=== PATIENT | female | born 1985 | race Caucasian/White ===

== ENCOUNTER 2018-10-31 19:37 | Inpatient (IN) ==
[2018-10-31] MEDS ORDERED: MOM Conc 10 ML UD.LIQ PO PRN (20:18)
[2018-10-31] MEDS ORDERED: *HR* LORazepam 1 MG TABLET PO PRN (20:18)
[2018-10-31] MEDS ORDERED: Haloperidol Lactate 5 MG/ML VIAL IM PRN (20:18)
[2018-10-31] MEDS ORDERED: Mag Hydrox/Al Hydrox/Simeth 30 ML UDC PO PRN (20:18)
[2018-10-31] MEDS ORDERED: traZODone 50 MG TABLET PO PRN (20:18)
[2018-10-31] MEDS ORDERED: *HR* LORazepam 2 MG/ML VIAL IM PRN (20:18)
[2018-10-31] MEDS ORDERED: hydrOXYzine pamoate 25 MG CAPSULE PO PRN (20:18)
[2018-10-31] MEDS ORDERED: Acetaminophen 325 MG TABLET PO PRN (20:18)
[2018-10-31] MEDS ORDERED: Ibuprofen 600 MG TABLET PO PRN (21:52)
--- NOTE | 2018-11-01 09:59 | Psychiatry History & Physical ---
Date of Encounter: 11/01/18 Time of Encounter: 09:00 History of Present Illness Patient Stated Chief Complaint: "I was sleeping and I said 'yes,' and then I had a baby" Medicare Admission Attestation: For traditional Medicare patients the provided hospital inpatient services are reasonable and necessary and in the case of services not specified as inpatient-only under 42 CFR 419.22 (n), that they are appropriately provided as inpatient services in accordance 42 CFR 412.3. For Critical Access Hospital the patient may reasonably be expected to be discharged or transferred to a hospital within 96 hours after admission to the Critical Access Hospital. Admitted From: Direct Admit Plans for Post Hospital Care: Home History of Present Illness: Ms. Tran is a 33 year old female who was a direct admit from [facility] after giving at home on 10/29/18. Per review of records, patient had her baby boy in a toilet at home. She was then brought to the ED covered in blood where she appeared to be somewhat indifferent to the baby. She answered most questions at that time with "I don't know." Most information was obtained from November, her boyfriend's mother. Apparently, she found out about her in August 2018, but did not believe it, so she had no care and refused to take vitamins. Records indicate that she has a history of schizophrenia. On first interaction with patient, patient left the room after 2 minutes after grabbing her breasts and saying "I need to go." Later, patient preferred to speak with this provider and the medical student in the day room instead of her room. Information is limited as to patient's current condition. When asked what brought her to the unit, she replied "I was asleep on psychiatrically-induced medications, and said 'yes,' and had a baby. It is kind of unbelievable." She reports also having two other children who were "closer to expected." When asked what medications she was taking, she states "too much medications by too much doctors." Patient admitted to seeing a madhaviaun, but then stated that she was kidding and laughed. Patient is able to state her first name, but reports that her last name is "No. It should be no." She knows that she is at [facility], and is aware that she had a baby boy on 10/29/18. Denies suicidal and homicidal ideation. On third interaction with the patient, she was lying in bed. She stated that she has "a lot of pressure in my breasts." She repeatedly rolled her eyes into the back of her head with rapid blinking. However, she would speak during these episodes. She was informed of the risks, benefits, and side effects of aripiprazole, and asked to see written information about the medication. She then asked if she "still had the right to refuse medication." When asked if she plans to breastfeed, she responded "You mean the baby I had on Wednesday? I don't know. I doubt it." Patient gave verbal consent to speak with Portillo and his mother, November, with whom she lives. She refused to sign the informed medication consent and master treatment plan. Past Med Surg Social Fam HX - Past Medical History Source: old records reviewed, obtained from family Medical history: other (vaginal child at home on 10/29/18) - Past Psychiatric History Psychiatric history: Reports: schizophrenia (per review of direct admit records) Past psychiatric history details: Records indicate that patient was hospitalized on an inpatient psychiatric unit two years ago. Also indicates that patient stopped taking her psychiatric medications at that time. Patient's states that her past psychiatric history as "too much." She states that she has "many diagnoses from different doctors, too much different doctors." Family psychiatric history: Unknown Family History of Suicide: Unknown - Social History Smoking Status: Unknown if ever smoked Current living situation: Home Activity Level: Independent ambulation Additional social history: Patient currently lives with her boyfriend (Portillo) and his mother (November). She has a that was delivered at home on 10/29/18 and two other children. Not able to obtain any other social history, including substance use. Medications & Allergies Allergy/AdvReac Type Severity Reaction Status Date / Time Cyclobenzaprine AdvReac Anaphylaxis Verified 10/31/18 20:16 [From Flexeril] Review of Systems ROS limited: due to patient condition Psychiatric: Denies: suicidal ideation, homicidal ideation Exam - HEENT Head exam IM: Present: normal inspection Eye exam IM: Present: EOMI, normal appearance - Respiratory Respiratory exam IM: Absent: accessory muscle use, respiratory distress - GI/Abdominal GI/Abdominal exam IM: Present: no peritoneal signs - Skin Skin exam IM: Present: dry - Additional Information Additional Information: Patient is experiencing bloody discharge/lochia from her childbirth 3 days ago. This was noted on her pants, so a new sanitary napkin and pair of pants was given to the patient. - Constitutional Vitals: Temp Pulse Resp BP Pulse Ox 97.1 F L 102 16 117/76 99 11/01/18 09:00 11/01/18 09:00 11/01/18 09:00 11/01/18 09:00 11/01/18 09:00 General appearance: age & developmentally appropriate, unkempt, average Additional observations: Occasionally rolls eyes in the back of her head and blinks repetitively. She does speak when doing this and can be redirected. Has food on her left cheek. Poor dentition. - Musculoskeletal Gait: slow (appears to walk with an antalgic gait) Station: stiff - Psychiatric Patient Orientation: Yes Person, Yes Time, Yes Place Level of alertness: Alert, Follows commands Behavior: calm, restless (patient is pacing the halls), suspicious Psychomotor activity: Normal Eye Contact: Minimal Contact (also with occasional rapid blinking) Mood Description: Other Patient description of mood: "I don't know" Affect description: blunted Speech Volume: Soft/Quiet Speech pattern: slowed, monotone, other (Patient frequently answers "I don't know." ) Language & Vocabulary: limited Thought Process: Disorganized, [place], Slowed Thinking Thought Content: No Suicidal ideation, No Homicidal ideation Perceptual Disturbances: Yes Reacting to internal stimuli, Yes Visual hallucinations ([facility], but then said "just kidding.") Attention Span Ability: Unable to Sustain Attention Memory Description: Recent Intact Patient Reliability: Not Reliable Historian Fund of knowledge: Yes average Intelligence Estimate: Average Judgment: Limited Insight: Minimal Assessment and Plan (1) Schizophrenia Current visit: Yes Status: Chronic Plan: Admit inpatient for safety and stabilization, Close observation, Suicide Precautions per unit protocol, Encourage participation in unit milieu, Group Therapy, Monitor sleep, Monitor appetite Additional Plan: 1. Continue inpatient hospitalization given patient's current mental state. 2. Will start aripiprazole 5mg. Patient was given a written handout on this medication. She did ask if she "still had a right to refuse medication." Want to avoid using risperidone, given that patient is already expressing breast milk and this will increase . Patient "doubts" that she will breastfeed her baby. 3. Would like to get collateral information regarding past medications and history of present illness from November (patient's boyfriend's mother, with whom she lives), but do not have her phone number and patient does not know it. Plan to do this as soon as phone number is obtained. Patient gave verbal consent to speak with her. 4. Encourage group attendance while on the unit. 5. Anticipate discharge in about 7 days or when psychiatrically stable. 6. Will continue to monitor while on the unit. Risks, benefits, side effects, alternatives discussed w/pt: Yes Plans for Post Hospital Care: Home Estimated Length of Stay (Days): 7 Qualifiers: Schizophrenia type: unspecified Qualified Code(s): F20.9 - Schizophrenia, unspecified - Attending Attestation I examined this patient and my medical decision-making was reviewed with the Resident Physician. I agree with the documented findings, disposition and treatment plan as described except to the extent set forth below.
[2018-11-01] MEDS: ARIPiprazole 5 MG TABLET PO SCH (13:48)
--- NOTE | 2018-11-02 09:47 | Psychiatry Progress Note ---
Date of Encounter: 11/02/18 Time of Encounter: 08:40 Subjective Interval history: Ms. Tran is a 33 year old female who was admitted for psychosis following the of her son on 10/29/18. She was sitting on her bed when this provider and the medical student entered her room. She states that her mood is "I don't know." She states that she slept "differently," because her breasts felt "irritable." In regards to her appetite, she reports, "I ate breakfast," but states that she skipped dinner last night. She does report being in pain, but states "it doesn't matter" when asked where the pain is. She was reminded that she can have Tylenol, but does not want it. Denies suicidal and homicidal ideation. When asked about visual/auditory hallucinations, she replied "Should I? People keep asking me that here." She does appear to be reacting to internal stimuli. She also did not want the door to her bedroom to be closed, because she feels as if it could lock automatically. Patient refused her Abilify last night. She is afraid that it will make her sleep too much. She was told by my attending, Dr. Salazar, that she will be probated for court-ordered medications. She asked this provider about that, but was most concerned about where the court was. She also reports recognizing Dr. Salazar from the [facility], but then stated that she doesn't go to the [facility]. Review of Systems Integumentary: Reports: nipple discharge (secondary to giving 4 days ago; also reports breast pain) Psychiatric: Reports: abnormal sleep pattern (due to "irritable" breasts). Denies: suicidal ideation, homicidal ideation Results - Vital Signs Vital Signs: Temp Pulse Resp BP Pulse Ox 98.1 F 90 20 123/88 100 11/01/18 19:57 11/01/18 19:57 11/01/18 19:57 11/01/18 19:57 11/01/18 19:57 Assessment and Plan (1) Schizophrenia Current visit: Yes Status: Chronic Plan: Continue hospitalization, Close observation, Suicide Precautions per unit protocol, Encourage participation in unit milieu, Group Therapy, Monitor sleep, Monitor appetite Additional Plan: 1. Continue inpatient hospitalization given patient's current mental state. 2. Will continue Abilify 5mg, however patient is refusing. Patient will be probated for court-ordered medications. Paperwork has already been filled out. 3. Would still like to obtain collateral information from Tarsha, her boyfriend's mother. However, no contact information is available at this time. 4. Encourage group attendance while on the unit. 5. Anticipate discharge when psychiatrically stable. 6. Will continue to monitor while on the unit. Risks, benefits, side effects, alternatives discussed w/pt: Yes Patient agreeable to treatment: No (refusing medication) Qualifiers: Schizophrenia type: unspecified Qualified Code(s): F20.9 - Schizophrenia, unspecified Consult Discharge Plan - Plan Referrals: NONE,PCP [Primary Care Provider] - - Attending Attestation I examined this patient and my medical decision-making was reviewed with the Resident Physician. I agree with the documented findings, disposition and treatment plan as described except to the extent set forth below. Patient still very bizarre, refusing meds and not caring for herself. When I inquired about the baby stared at me and asked if I had ever given to something that was already alive. Significant thought blocking. Psychiatry Exam - Constitutional Vitals: Temp Pulse Resp BP Pulse Ox 98.1 F 90 20 123/88 100 11/01/18 19:57 11/01/18 19:57 11/01/18 19:57 11/01/18 19:57 11/01/18 19:57 General appearance: age & developmentally appropriate, unkempt, average - Musculoskeletal Gait: other (not assessed) Station: [facility] - Psychiatric Patient Orientation: Yes Person, Yes Time, Yes Place Level of alertness: Alert Behavior: calm, suspicious Psychomotor activity: Normal Eye Contact: Maintains Eye Contact Patient description of mood: "I don't know" Affect description: blunted Speech Volume: Soft/Quiet Speech pattern: monotone Language & Vocabulary: consistent with education Thought Process: [place] Thought Content: No Suicidal ideation, No Homicidal ideation Perceptual Disturbances: Yes Reacting to internal stimuli (frequently looks around the room; was sitting in bed staring at the ramsay when this provider entered her room; denies AH/VH but does appear to be reacting to internal stimuli) Attention Span Ability: Capable of Focused Attention Memory Description: Recent Intact Patient Reliability: Not Reliable Historian Fund of knowledge: Yes average Intelligence Estimate: Average Judgment: Limited Insight: Minimal
[2018-11-02] MEDS: ARIPiprazole 5 MG TABLET PO SCH (11:29)
--- NOTE | 2018-11-03 09:20 | Psychiatry Progress Note ---
Date of Encounter: 11/03/18 Time of Encounter: 09:18 Subjective Interval history: CC: You have court here but millions of [place] are losing their jobs" She remains very bizarre with significant thought blocking and staring. She continues to refuse medications. When asked why she said "they make me sleep too much" we discussed other options for antipsychotics and that Abilify is actually a good choice with one of the better side effects profiles in terms of sedation. She continues to feel she does not need them. When asked where she wants to go after she leaves here she says she does not know. She is not sure if November will take her back and she said they Called her. We talked about the process of having to give them a number so that they can call in. She became very confused by this information. She says "I do not know" when asked if she has hallucinations but she clearly seems to be responding to internal stimuli. She is not bailing him adequately despite being . She is skipping most meals and has only eaten toast Review of Systems Psychiatric: Reports: abnormal sleep pattern (due to "irritable" breasts), auditory hallucinations, visual hallucinations, difficulty concentrating, other (Psychosis). Denies: suicidal ideation, homicidal ideation Results - Vital Signs Vital Signs: Temp Pulse Resp BP Pulse Ox 98 F 95 16 114/77 96 11/03/18 09:00 11/03/18 09:00 11/03/18 09:00 11/03/18 09:00 11/03/18 09:00 Assessment and Plan (1) Schizophrenia Current visit: Yes Status: Chronic Plan: Continue hospitalization, Close observation, Suicide Precautions per unit protocol, Encourage participation in unit milieu, Group Therapy, Monitor appetite Additional Plan: Continue to encourage Abilify as well as group attendance. We have discussed other treatment options and different antipsychotics. She continues to refuse so the probate Court paperwork was filled out yesterday for court ordered medication. Risks, benefits, side effects, alternatives discussed w/pt: Yes Patient agreeable to treatment: No (refusing medication) Qualifiers: Schizophrenia type: unspecified Qualified Code(s): F20.9 - Schizophrenia, unspecified Consult Discharge Plan - Plan Referrals: NONE,PCP [Primary Care Provider] - Psychiatry Exam - Constitutional Vitals: Temp Pulse Resp BP Pulse Ox 98 F 95 16 114/77 96 11/03/18 09:00 11/03/18 09:00 11/03/18 09:00 11/03/18 09:00 11/03/18 09:00 General appearance: malodorous, thin - Musculoskeletal Gait: slow Station: bizarre mannerisms, posturing Strength & Tone: normal for patient - Psychiatric Patient Orientation: Yes Person Level of alertness: Alert Behavior: guarded, suspicious, distractible, withdrawn Psychomotor activity: Slowed Eye Contact: Avoids Eye Contact Mood Description: Other (bizzare) Patient description of mood: "I don't know" Affect description: flat Speech Volume: Soft/Quiet Speech pattern: slowed, inappropriate to situation, impoverished, monotone Language & Vocabulary: limited Thought Process: Thought Blocking Thought Content: No Suicidal ideation, No Homicidal ideation, Yes Paranoid delusion Perceptual Disturbances: Yes Reacting to internal stimuli, Yes Auditory hallucinations, Yes Visual hallucinations Attention Span Ability: Unable to Focus, Unable to Sustain Attention Memory Description: Immediate Impaired, Recent Impaired, Remote Impaired Patient Reliability: Not Reliable Historian Fund of knowledge: No abstraction ability Intelligence Estimate: Average Judgment: Poor Insight: None
[2018-11-03] MEDS: ARIPiprazole 5 MG TABLET PO SCH (10:05)
[2018-11-04] MEDS: ARIPiprazole 5 MG TABLET PO SCH ×2 (10:16→11:02)
--- NOTE | 2018-11-04 11:00 | OB/GYN Consult Note ---
Date of Encounter: 11/04/18 Time of Encounter: 10:59 Assessment and Plan (1) breast engorgement Current Visit: Yes Status: Acute Bilateral breast examined: No s/s of mastitis] Binder applied for compression (2) care following vaginal delivery Current Visit: Yes Status: Acute Continue routine perineal care History of Present Illness Consult date: 11/04/18 Reason for consult: other (1 week postparum) History of present illness: Patient is a 33 y/o female that was admitted to as a "direct admit from [facility] after giving at home on 10/29/18. Patient had her baby boy in a toilet at home. Apparently, she found out about her in August 2018, but did not believe it, so she had no care and refused to take vitamins. Patient is currently refusing mediations. Dr. Henry placed an OB consult due to patient not doing well with hygiene. When I arrived to patient's room patient had just completed her shower. Patient's vital signs are stable. Patient is afebrile, denies any tenderness to abdomen during exam. Patient denies any stitches following delivery. Patient was seen and assessed by OBGYN service no further need for regulatory compliance specialist care. OB may be consulted in future if needed. Past Med Surg Social Fam HX - Past Medical History Medical history: other (vaginal child at home on 10/29/18) Additional medical history: borderline DM, ovarian cyst Psychiatric history: schizophrenia (per review of direct admit records) - Past Surgical History Additional surgical history: no surgeries - Social History Smoking Status: Unknown if ever smoked Smokeless Tobacco Status: No Alcohol use: none Drug use: none Medications and Allergies Unable To Obtain [Unable to Obtain] 11/01/18 [History] Allergy/AdvReac Type Severity Reaction Status Date / Time Cyclobenzaprine AdvReac Anaphylaxis Verified 10/31/18 20:16 [From Flexeril] Review of Systems Constitutional: no chills, no fever(s), no headache(s), no weakness Breasts: pain (reports tenderness) Cardiovascular: no lightheadedness Gastrointestinal: no abdominal pain, no cramping, no nausea, no vomiting Genitourinary Female: no abnormal vaginal bleeding, no difficulty urinating, no dysuria, no genital pruritis, no pelvic pain, no urinary frequency, no urinary hesitancy, no urinary incontinence, no vaginal odor Neurological: no dizziness, no headache(s) Exam - Vital Signs Vital signs: Initial Vital Signs Temp Pulse Resp BP Pulse Ox 98.4 F 90 18 137/83 97 10/31/18 19:40 10/31/18 19:40 10/31/18 19:40 10/31/18 19:40 10/31/18 19:40 - Constitutional Constitutional: well developed - HEENT HEENT: Normocephaly, Mucus Membranes Moist - Cardiovascular Cardiovascular exam: RRR, +S1, +S2 - Breasts Breast: bilateral: normal (no streaking or redness noted) - Abdomen Abdomen: Present: bowel sounds normal, non tender - Extremities Extremities exam: full ROM, normal inspection - Comments Comments: light lochia noted. no blood clots noted Results All other labs normal. Consult Discharge Plan - Plan Referrals: NONE,PCP [Primary Care Provider] -
--- NOTE | 2018-11-04 15:43 | Psychiatry Progress Note ---
Date of Encounter: 11/04/18 Time of Encounter: 13:00 Subjective Interval history: This is a 33 y/o postpartal female with a diagnosis of schizophrenia who was admitted after she delivered a baby in the toilet. Patient unaware of her . Patient admitted with psychosis. Patient has refused medication since admission. Today patient was seen by OB-LABORATORY DEVELOPMENT TECHNICIAN on consult due to patient's inability to take care of her hygiene and engorgement of her breasts. Patient on interview is generally cooperative,but displays thought blocking and states, "you wouldn't believe." Patient admits to A?V hallucinations, but declines to comment on the content of these hallucinations. Patient states she is being watched like everyone else. Patient is reluctant to engage in conversation and signals that she is finished talking by getting up and heading toward the door. Review of Systems Constitutional: Denies: fever, chills, weakness, weight change Eyes: Denies: eye pain, vision change Ears, Nose, Throat: Denies: ear pain, throat pain, dental pain, hearing loss, congestion Cardiovascular: Denies: chest pain, palpitations, dyspnea on exertion Respiratory: Denies: cough, dyspnea, wheezes Gastrointestinal: Denies: abdominal pain, nausea, vomiting, diarrhea, constipation Genitourinary male: Reports: urgency Genitourinary female: Reports: discharge, other (Lochia) Musculoskeletal: Denies: joint swelling, joint pain Neurological: Denies: headache, weakness, numbness, memory loss Psychiatric: Reports: abnormal sleep pattern (due to "irritable" breasts), auditory hallucinations, visual hallucinations, difficulty concentrating, other (Psychosis). Denies: suicidal ideation, homicidal ideation Endocrine: Denies: fatigue, heat or cold intolerance, polydipsia, polyuria Results - Vital Signs Vital Signs: Temp Pulse Resp BP Pulse Ox 98 F 85 16 107/74 97 11/04/18 09:00 11/04/18 09:00 11/04/18 09:00 11/04/18 09:00 11/04/18 09:00 Assessment and Plan (1) Schizophrenia Current visit: Yes Status: Chronic Plan: Continue hospitalization, Close observation, Suicide Precautions per unit protocol, Encourage participation in unit milieu, Group Therapy, Monitor sleep, Monitor appetite Additional Plan: Increase Abilify to 10mg/d. This med will not likely cause elevation of prolactin. Encourage group attendance. Patient did take her morning dose of abilify. Court papers have been filed for lack of compliance. Risks, benefits, side effects, alternatives discussed w/pt: Yes Patient agreeable to treatment: No (refusing medication) Qualifiers: Schizophrenia type: unspecified Qualified Code(s): F20.9 - Schizophrenia, unspecified (2) breast engorgement Current visit: Yes Status: Acute Plan: Continue hospitalization, Close observation, Suicide Precautions per unit protocol, Encourage participation in unit milieu, Group Therapy, Monitor sleep, Monitor appetite Additional Plan: OB-LABORATORY DEVELOPMENT TECHNICIAN has sxamined patient and placed a breast binder to diminsh patient's breast milk production. Risks, benefits, side effects, alternatives discussed w/pt: Yes Patient agre eable to treatment: Yes Consult Discharge Plan - Plan Referrals: NONE,PCP [Primary Care Provider] - Psychiatry Exam - Constitutional Vitals: Temp Pulse Resp BP Pulse Ox 98 F 85 16 107/74 97 11/04/18 09:00 11/04/18 09:00 11/04/18 09:00 11/04/18 09:00 11/04/18 09:00 General appearance: disheveled - Musculoskeletal Gait: normal Station: relaxed Strength & Tone: normal for patient - Psychiatric Patient Orientation: Yes Person, Yes Time, Yes Place Level of alertness: Alert Behavior: anxious, guarded, suspicious, distractible Psychomotor activity: Normal Eye Contact: Minimal Contact Mood Description: Depressed Affect description: blunted, inappropriate to situation Speech Volume: Normal Speech pattern: limited, impoverished, mumbled Language & Vocabulary: limited Thought Process: Loose Associations, Thought Blocking, [place] Thought Content: Yes Ideas of reference, Yes Preoccupation, Yes Poverty of Content Perceptual Disturbances: Yes Auditory hallucinations, Yes Visual hallucinations Attention Span Ability: Capable of Sustained Attention Memory Description: Grossly Intact Patient Reliability: Not Reliable Historian Fund of knowledge: Yes below average Intelligence Estimate: Average Judgment: Poor Insight: None
[2018-11-05] MEDS: ARIPiprazole 5 MG TABLET PO SCH (09:02)
--- NOTE | 2018-11-05 16:28 | Psychiatry Progress Note ---
Date of Encounter: 11/05/18 Time of Encounter: 15:30 Subjective Interval history: Patient admitted postpartal with psychosis. Patient in bed on morning rounds and not wanting to talk, so patient seen this afternoon and cooperative to interview. Patient questions the dose of Ablilify and states she has the right to refuse medication. Patient very guarded and suspicious. Patient denies A/V hallucinations, but wants to know which voices are being referred to. Patient declines to discuss mood or anxiety. Patient states she did shower and change her pad today. States that she sleep well, but denies that she feels refreshed. Appetite WNL. Patient makes some stereotypic movements during interview. Review of Systems Constitutional: Denies: fever, chills, weakness, weight change Eyes: Denies: eye pain, vision change Ears, Nose, Throat: Denies: ear pain, throat pain, dental pain, hearing loss, congestion Respiratory: Denies: cough, dyspnea, wheezes Gastrointestinal: Denies: abdominal pain, nausea, vomiting, diarrhea, constipation Genitourinary male: Reports: discharge, other (lochia) Genitourinary female: Reports: discharge. Denies: urgency, dysuria, frequency Musculoskeletal: Denies: joint swelling, joint pain Neurological: Denies: headache, weakness, numbness, memory loss Psychiatric: Reports: abnormal sleep pattern (due to "irritable" breasts), auditory hallucinations, visual hallucinations, difficulty concentrating, other (Psychosis). Denies: suicidal ideation, homicidal ideation Endocrine: Denies: fatigue, heat or cold intolerance, polydipsia, polyuria Hematologic/Lymphatic: Denies: easy bleeding, easy bruising, lymphadenopathy Allergic/Immunologic: Denies: facial swelling, urticaria, itchy eyes, other Results - Vital Signs Vital Signs: Temp Pulse Resp BP Pulse Ox 97.4 F L 111 18 113/79 97 11/05/18 08:19 11/05/18 08:19 11/05/18 08:19 11/05/18 08:19 11/05/18 08:19 Assessment and Plan (1) Schizophrenia Current visit: Yes Status: Chronic Plan: Continue hospitalization, Close observation, Suicide Precautions per unit protocol, Encourage participation in unit milieu, Group Therapy, Monitor sleep, Monitor appetite Additional Plan: Continue Abilify to 10mg/d, although patient may refuse med. This med will not likely cause elevation of prolactin. Encourage group attendance. Court papers have been filed for lack of compliance. Risks, benefits, side effects, alternatives discussed w/pt: Yes Patient agreeable to treatment: No (refusing medication) Qualifiers: Schizophrenia type: unspecified Qualified Code(s): F20.9 - Schizophrenia, unspecified (2) breast engorgement Current visit: Yes Status: Acute Plan: Continue hospitalization, Close observation, Suicide Precautions per unit protocol, Encourage participation in unit milieu, Group Therapy, Monitor sleep, Monitor appetite Additional Plan: OB-LOSS CONTROL MANAGER has sxamined patient and placed a breast binder to diminish patient's breast milk production. Risks, benefits, side effects, alternatives discussed w/pt: Yes Patient agreeable to treatment: Yes Consult Discharge Plan - Plan Referrals: NONE,PCP [Primary Care Provider] - Psychiatry Exam - Constitutional Vitals: Temp Pulse Resp BP Pulse Ox 97.4 F L 111 18 113/79 97 11/05/18 08:19 11/05/18 08:19 11/05/18 08:19 11/05/18 08:19 11/05/18 08:19 General appearance: age & developmentally appropriate, well-groomed, well- nourished - Musculoskeletal Gait: normal Station: relaxed Strength & Tone: normal for patient - Psychiatric Patient Orientation: Yes Person, Yes Time, Yes Place Level of alertness: Alert Behavior: calm, guarded, suspicious Psychomotor activity: Normal Eye Contact: Fleeting Contact Mood Description: Euthymic/stable Affect description: constricted, incongruent with mood Speech Volume: Soft/Quiet Speech pattern: limited, monotone Language & Vocabulary: consistent with education Thought Process: Tangential, Thought Blocking, Evasive Thought Content: Yes Ideas of reference, Yes Paranoid delusion Perceptual Disturbances: No Auditory hallucinations, No Visual hallucinations Attention Span Ability: Capable of Focused Attention Memory Description: Grossly Intact Patient Reliability: Questionable Historian Fund of knowledge: Yes abstraction ability, Yes aware of current events Intelligence Estimate: Average Judgment: Limited Insight: Minimal
[2018-11-05] MEDS ORDERED: ARIPiprazole 10 MG TABLET PO STA (20:14)
--- NOTE | 2018-11-06 09:02 | Psychiatry Progress Note ---
Date of Encounter: 11/06/18 Time of Encounter: 09:00 Subjective Interval history: CC: "Nevermind, I don't think you would get it." Patient remains confused and disorganized. She did remember my name and remembered me from 3 days ago but was paranoid about where I was saying she didn't believe I was at a medical conference. She looks around the room and appears to be responding to internal stimuli though denies AH or VH. She took one dose of abilify last night. But otherwise is refusing all meds. She has poor hygiene and is not caring for ADLs and not eating much. Review of Systems Psychiatric: Reports: abnormal sleep pattern (due to "irritable" breasts), auditory hallucinations, visual hallucinations, confusion, difficulty concentrating, other (Psychosis). Denies: suicidal ideation, homicidal ideation Results - Vital Signs Vital Signs: Temp Pulse Resp BP Pulse Ox 97.2 F L 106 18 111/79 96 11/05/18 21:00 11/05/18 21:00 11/05/18 21:00 11/05/18 21:00 11/05/18 21:00 Assessment and Plan (1) Schizophrenia Current visit: Yes Status: Chronic Plan: Continue hospitalization, Close observation, Suicide Precautions per unit protocol, Encourage participation in unit milieu, Group Therapy, Monitor sleep, Monitor appetite Additional Plan: Has still only taken one dose of meds so will continue to move forward with court ordered med hearing, especially since really needs VANEGAS. Encourage groups, encourage hygiene. Risks, benefits, side effects, alternatives discussed w/pt: Yes Patient agreeable to treatment: No (refusing medication) Qualifiers: Schizophrenia type: unspecified Qualified Code(s): F20.9 - Schizophrenia, unspecified Consult Discharge Plan - Plan Referrals: NONE,PCP [Primary Care Provider] - Psychiatry Exam - Constitutional Vitals: Temp Pulse Resp BP Pulse Ox 97.2 F L 106 18 111/79 96 11/05/18 21:00 11/05/18 21:00 11/05/18 21:00 11/05/18 21:00 11/05/18 21:00 General appearance: disheveled, malodorous - Musculoskeletal Gait: slow Station: stooped Strength & Tone: normal for patient - Psychiatric Patient Orientation: Yes Person, Yes Place Level of alertness: Alert Behavior: guarded, suspicious, withdrawn Psychomotor activity: Slowed Eye Contact: Minimal Contact Mood Description: Other (bizarre) Patient description of mood: "why do you need to know" Affect description: flat Speech Volume: Soft/Quiet Speech pattern: slowed Language & Vocabulary: limited Thought Process: Thought Blocking Thought Content: Yes Preoccupation, Yes Paranoid delusion Perceptual Disturbances: Yes Reacting to internal stimuli, Yes Auditory hallucinations, Yes Visual hallucinations Attention Span Ability: Unable to Focus, Unable to Sustain Attention Memory Description: Immediate Impaired, Recent Impaired, Remote Impaired Patient Reliability: Not Reliable Historian Fund of knowledge: Yes average Intelligence Estimate: Above [place] Judgment: Poor Insight: None
[2018-11-06] MEDS: ARIPiprazole 5 MG TABLET PO SCH (10:00)
[2018-11-06] MEDS ORDERED: ARIPiprazole 10 MG TABLET PO SCH (21:00)
[2018-11-07] MEDS: ARIPiprazole 5 MG TABLET PO SCH (10:06)
--- NOTE | 2018-11-07 10:40 | Psychiatry Progress Note ---
Date of Encounter: 11/07/18 Time of Encounter: 09:50 Subjective Interval history: Ms. Tran is a 33 year old female who was admitted for psychosis 2 days after giving childbirth. Patient was sitting up in bed when this provider entered her room. She had wet hair and the blanket pulled up to her chin. She remembered this provider from last week. She states that her mood and sleep are "I don't know." She denies any side effects from the medications, but state that she is not eating as much. States that she did not eat breakfast this morning. When asked if she is experiencing auditory or visual hallucinations, she replied "not yet," though does appear to be reacting to internal stimuli. She reports that her pain has improved and it is "unbelievable." She has not been attending groups because the groups are "unbelievable." Nursing staff reports that patient has been sleeping at night with the light on. When asked about this, she said "You just don't know. It's too much description." Denies suicidal and homicidal ideation. She asked this provider, "Have you ever hear of getting in your sleep?" This provider asked what she meant, and she states that she was living in a hotel by herself, and saw a man that looked like her boyfriend. She states that she "said yes in my sleep" due to "psychiatric medications." When asked to elaborate, she stated that it was "too much for today." Patient has probate court on 11/11/18 at 1:30pm. Review of Systems Musculoskeletal: Denies: myalgia Psychiatric: Reports: abnormal sleep pattern (due to "irritable" breasts), change in appetite, other (Psychosis). Denies: suicidal ideation, homicidal ideation, auditory hallucinations, visual hallucinations Results - Vital Signs Vital Signs: Temp Pulse Resp BP Pulse Ox 98.4 F 96 16 121/84 97 11/06/18 20:54 11/06/18 20:54 11/06/18 20:54 11/06/18 20:54 11/06/18 20:54 Assessment and Plan (1) Schizophrenia Current visit: Yes Status: Chronic Plan: Continue hospitalization, Close observation, Suicide Precautions per unit protocol, Encourage participation in unit milieu, Group Therapy, Monitor sleep, Monitor appetite Additional Plan: 1. Continue current medications as prescribed. She has not been taking every dose of medication, so will proceed with court-ordered medications. Scheduled for 11/11/18 at 1:30pm. 2. Encouraged group participation while on the unit. 3. Continue to monitor while on the unit. 4. Anticipate discharge when more psychiatrically stable. Risks, benefits, side effects, alternatives discussed w/pt: Yes Patient agreeable to treatment: No (refusing medication) Qualifiers: Schizophrenia type: unspecified Qualified Code(s): F20.9 - Schizophrenia, unspecified Consult Discharge Plan - Plan Referrals: NONE,PCP [Primary Care Provider] - - Attending Attestation I examined this patient and my medical decision-making was reviewed with the Resident Physician. I agree with the documented findings, disposition and treatment plan as described except to the extent set forth below. Client is very psychotic. During interview today she requested to shut the door. She then proceeded to open and close the door multiple times. Seemed to want the door closed but was fearful it would lock her in if it was fully shut. Stood half-way through the interview and started inching toward the door. Ended up terminating interview mid sentence and walking out. Responding to IS while in room. According to staff she is paranoid about medications. Told this underwriter she is/was on too many meds. Currently only on Abilify 10mg and selective about taking that. Not doing well and needs more but will likely have to wait until after forced med hearing on as client refusing any additional medications/dose changes. Psychiatry Exam - Constitutional Vitals: Temp Pulse Resp BP Pulse Ox 98.4 F 96 16 121/84 97 11/06/18 20:54 11/06/18 20:54 11/06/18 20:54 11/06/18 20:54 11/06/18 20:54 General appearance: age & developmentally appropriate, unkempt, average - Musculoskeletal Station: relaxed Strength & Tone: normal for patient - Psychiatric Patient Orientation: Yes Person, Yes Place, Yes Circumstance Level of alertness: Alert Behavior: cooperative, guarded, suspicious Psychomotor activity: Normal Eye Contact: Maintains Eye Contact Mood Description: Depressed Patient description of mood: "I don't know" Affect description: blunted Speech Volume: Soft/Quiet Speech pattern: disorganized, monotone Language & Vocabulary: consistent with education Thought Process: Disorganized Thought Content: No Suicidal ideation, No Homicidal ideation Perceptual Disturbances: Yes Reacting to internal stimuli, No Auditory hallucinations (denies auditory/visual hallucinations, but does appear to be reacting to internal stimuli), No Visual hallucinations Attention Span Ability: Capable of Focused Attention Memory Description: Recent Intact Patient Reliability: Questionable Historian Fund of knowledge: Yes average Intelligence Estimate: Average Judgment: Limited Insight: Minimal
[2018-11-07] MEDS ORDERED: ARIPiprazole 10 MG TABLET PO STA (20:36)
--- NOTE | 2018-11-08 09:29 | Psychiatry Progress Note ---
Date of Encounter: 11/08/18 Time of Encounter: 08:50 Subjective Interval history: Ms. Tran is a 33 year old female who was admitted on 10/31/18 with psychosis following the home of her baby boy. Today, she states that her mood is "I don't know" and that her sleep is also "I don't know." Later, she stated "I was sleeping." She did not eat breakfast today or yesterday and isn't hungry, though she is thirsty. Oriented to place and circumstance, but not oriented to time (did not know it was October or what month comes after October). In regards to her depression level today, she states her depression is "Yes. I don't know." Denies pain, auditory/visual hallucinations "that I know of," suicidal ideation, homicidal ideation, and anxiety. She is more irritable today than on previous days. She did ask why we were treating her with a medication for dementia. This provider explained to her that we are not using Abilify for dementia and explained the indication for the medication. Review of Systems Psychiatric: Reports: depression, change in appetite. Denies: anxiety, suicidal ideation, homicidal ideation, auditory hallucinations, visual hallucinations Results - Vital Signs Vital Signs: Temp Pulse Resp BP Pulse Ox 99.3 F 97 20 116/83 97 11/07/18 19:51 11/07/18 19:51 11/07/18 19:51 11/07/18 19:51 11/07/18 19:51 Assessment and Plan (1) Schizophrenia Current visit: Yes Status: Chronic Plan: Continue hospitalization, Close observation, Suicide Precautions per unit protocol, Encourage participation in unit milieu, Group Therapy, Monitor sleep, Monitor appetite Additional Plan: 1. Continue current medications as prescribed. Will proceed with court-ordered medications. Scheduled for 11/11/18 at 1:30pm. 2. Encouraged group participation while on the unit. Patient has not attended any groups and is retreating to her room. 3. Continue to monitor while on the unit. 4. Anticipate discharge when more psychiatrically stable. Risks, benefits, side effects, alternatives discussed w/pt: Yes Patient agreeable to treatment: No (refusing medication) Qualifiers: Schizophrenia type: unspecified Qualified Code(s): F20.9 - Schizophrenia, unspecified Consult Discharge Plan - Plan Referrals: NONE,PCP [Primary Care Provider] - - Attending Attestation I examined this patient and my medical decision-making was reviewed with the Resident Physician. I agree with the documented findings, disposition and tr eatment plan as described except to the extent set forth below. Client continues to be very ill. Actively responding to IS during interview. Unable to have a meaningful conversation at this time. Willing to take Abilify but will only take it at night so will move dose to hs today. However, it is not enough to manage her symptoms. Discussed how she needs more aggressive treatment if she hopes to improve. Refusing most meds but out of the blue told this fha underwriter she would try Seroquel today. Abilify and Seroquel together is not the preferred combo but at this point she needs treatment. Will go with whatever she is willing to take for better symptom control. Psychiatry Exam - Constitutional Vitals: Temp Pulse Resp BP Pulse Ox 99.3 F 97 20 116/83 97 11/07/18 19:51 11/07/18 19:51 11/07/18 19:51 11/07/18 19:51 11/07/18 19:51 General appearance: age & developmentally appropriate, unkempt, average Additional observations: Unkempt hair. Wearing [facility]. - Musculoskeletal Gait: normal Station: relaxed Strength & Tone: normal for patient - Psychiatric Patient Orientation: Yes Person, No Time (does not know what month it is), Yes Place, Yes Circumstance Level of alertness: Alert Behavior: guarded, suspicious, withdrawn Psychomotor activity: Normal Eye Contact: Minimal Contact Mood Description: Depressed, Irritable (slightly, though could be due to patient being woken up) Patient description of mood: "I don't know" Affect description: blunted Speech Volume: Soft/Quiet Speech pattern: monotone, mumbled Language & Vocabulary: consistent with education Thought Process: Disorganized Thought Content: No Suicidal ideation, No Homicidal ideation Perceptual Disturbances: Yes Reacting to internal stimuli (denies AH/VH but appears to be reacting to internal stimuli, though less so than previously), No Auditory hallucinations, No Visual hallucinations Attention Span Ability: Unable to Focus Memory Description: Recent Intact Patient Reliability: Questionable Historian Fund of knowledge: Yes average Intelligence Estimate: Average Judgment: Limited Insight: Minimal
[2018-11-08] MEDS: ARIPiprazole 5 MG TABLET PO SCH (11:18)
--- NOTE | 2018-11-08 16:57 | Event Note ---
<Erma Austin P - Last Filed: 11/08/18 16:55> Date of Encounter: 11/08/18 Time of Encounter: 16:45 Nursing staff alerted this provider that the patient came up to the nursing staff asking for a dose of Abilify. As patient is intermittently adherent to medications, a now dose of aripiprazole 10 mg was ordered. In addition, as patient is in need of psychiatric medication, the night dose of Abilify was also kept. Patient is not naive to antipsychotic medication, and a total of 20 mg aripiprazole is not seen as a supratherapeutic dose. As such, the doubling of doses was seen to be a low risk and high yield strategy for improvement of the patient's mental health. <Miguelina Dorsey S - Last Filed: 11/09/18 08:44> Date of Encounter: 11/09/18 I examined this patient and my medical decision-making was reviewed with the Resident Physician. I agree with the documented findings, disposition and treatment plan as described.
[2018-11-08] MEDS ORDERED: ARIPiprazole 10 MG TABLET PO ONE (17:27)
[2018-11-09] MEDS: ARIPiprazole 5 MG TABLET PO SCH ×2 (01:18→20:19)
--- NOTE | 2018-11-09 09:32 | Psychiatry Progress Note ---
Date of Encounter: 11/09/18 Time of Encounter: 09:00 Subjective Interval history: Ms. Tran is a 33 year old female who was admitted to the unit for psychosis following the delivery of her child at home in the toilet. Patient has been mostly retreating to her room and has not attended any groups. Patient was sleeping with the lights on and with a chair behind her door when this provider entered the room. Patient states that her mood is "I don't know. Same as yesterday. I don't know." Her sleep last night was "I don't know." And in regards to whether or not she has pain, she says "I don't know." Denies suicidal ideation, homicidal ideation, and auditory/visual hallucinations. She does re port being more thirsty than previously, which she attributes to the Abilify. Patient asked if anybody has tried to call the hospital for her, and then specified that she was wondering if "the one she had the baby with" (Portillo, she clarified) had tried to contact the hospital. Patient requested a dose of Abilify yesterday afternoon, but then did not take her scheduled evening dose. She also refused her Seroquel last night. This was discussed with the patient and she said, "I'm not sure if I should take it." Probate hearing scheduled for tomorrow afternoon. This was again discussed with the patient and she expressed understanding. Review of Systems Psychiatric: Reports: change in appetite. Denies: suicidal ideation, homicidal ideation, auditory hallucinations, visual hallucinations Results - Vital Signs Vital Signs: Temp Pulse Resp BP Pulse Ox 99.1 F 102 16 107/75 99 11/08/18 20:41 11/08/18 20:41 11/08/18 20:41 11/08/18 20:41 11/08/18 20:41 Assessment and Plan (1) Schizophrenia Current visit: Yes Status: Chronic Additional Plan: 1. Continue current medications as prescribed. Will proceed with court-ordered medications. Scheduled for tomorrow, 11/11/18 at 1:30pm. While she is taking some Abilify, the treatment team believes that her dose should be higher and patient is refusing Seroquel. 2. Encouraged group participation while on the unit. Patient has not attended any groups and is retreating to her room. 3. Continue to monitor while on the unit. 4. Anticipate discharge when more psychiatrically stable. Risks, benefits, side effects, alternatives discussed w/pt: Yes Patient agreeable to treatment: No (refusing medication) Qualifiers: Schizophrenia type: unspecified Qualified Code(s): F20.9 - Schizophrenia, unspecified Consult Discharge Plan - Plan Referrals: NONE,PCP [Primary Care Provider] - - Attending Attestation I examined this patient and my medical decision-making was reviewed with the Resident Physician. I agree with the documented findings, disposition and treatment plan as described except to the extent set forth below. Client continues to be very psychotic. When she left the room today she hovered in the doorway like she was scared to walk out. She then bolted through the doorway like something was behind her. Denied voices to resident physician but continues to actively respond to internal stimuli with this program writer. Was refusing Abilify in morning claiming she wanted it at night. Dose moved to hs. However, yesterday she asked for it in the late afternoon. Refused hs dose when it was offered again. Also refused the Seroquel that she had previously agreed to take. Not getting enough meds to control symptoms. Will proceed with probate/forced meds tomorrow. Discussed court hearing with client. She appeared very nervous. Seemed relieved when this program writer told her she was not required to be there if it was too much for her but told her this program writer would be present to testify. Psychiatry Exam - Constitutional Vitals: Temp Pulse Resp BP Pulse Ox 99.1 F 102 16 107/75 99 11/08/18 20:41 11/08/18 20:41 11/08/18 20:41 11/08/18 20:41 11/08/18 20:41 General appearance: age & developmentally appropriate, disheveled, average Additional observations: Patient was sleeping when this provider approached. She did remember this provider's name for the first time. - Musculoskeletal Gait: normal Station: relaxed Strength & Tone: normal for patient - Psychiatric Level of alertness: Alert Behavior: guarded, suspicious, withdrawn Psychomotor activity: Normal Eye Contact: Maintains Eye Contact Mood Description: Euthymic/stable Patient description of mood: "I don't know" Affect description: blunted Speech Volume: Normal, Soft/Quiet Speech pattern: monotone Language & Vocabulary: consistent with education Thought Process: Disorganized Thought Content: No Suicidal ideation, No Homicidal ideation Perceptual Disturbances: No Reacting to internal stimuli (no longer appears to be responding to internal stimuli), No Auditory hallucinations, No Visual hallucinations Attention Span Ability: Capable of Focused Attention Memory Description: Recent Intact Patient Reliability: Not Reliable Historian Fund of knowledge: Yes average Intelligence Estimate: Average Judgment: Limited Insight: Minimal
[2018-11-09] MEDS ORDERED: ARIPiprazole 10 MG TABLET PO ONE (16:45)
--- NOTE | 2018-11-10 11:09 | Psychiatry Progress Note ---
Date of Encounter: 11/10/18 Time of Encounter: 11:04 Subjective Interval history: Client remains very psychotic but she did take the Seroquel last night. Slept well. States she still feels groggy today. Hopefully she will be able to tolerate higher doses as more is going to be needed to get her symptoms under control. Probate/forced med hearing today. Client is anxious about it and does not want to attend. Explained to her that no one will force her to attend but that it is her right to be there. Client did shower yesterday which is an improvement. However, she barely ate. Skipped breakfast and dinner and only ate a small part of her lunch. This is a change as she had been eating. Mostly isolates to room. Not attending any groups. Has not asked this copywriter once about her baby. Continues to respond to internal stimuli and looks very depressed. Will continue to titrate meds after hearing today. Review of Systems Constitutional: Denies: fever, chills, weakness, weight change Eyes: Denies: eye pain, vision change Ears, Nose, Throat: Denies: ear pain, throat pain, dental pain, hearing loss, congestion Cardiovascular: Denies: chest pain, palpitations, dyspnea on exertion Respiratory: Denies: cough, dyspnea, wheezes Gastrointestinal: Denies: abdominal pain, nausea, vomiting, diarrhea, constipation Musculoskeletal: Denies: joint swelling, joint pain Neurological: Denies: headache, weakness, numbness, memory loss Psychiatric: Reports: change in appetite. Denies: suicidal ideation, homicidal ideation, auditory hallucinations, visual hallucinations Results - Vital Signs Vital Signs: Temp Pulse Resp BP Pulse Ox 98.0 F 99 18 107/74 98 11/10/18 09:00 11/10/18 09:00 11/10/18 09:00 11/10/18 09:00 11/10/18 09:00 Assessment and Plan (1) Schizophrenia Current visit: Yes Status: Chronic Plan: Continue hospitalization, Close observation, Suicide Precautions per unit protocol, Encourage participation in unit milieu, Group Therapy, Monitor sleep, Monitor appetite Risks, benefits, side effects, alternatives discussed w/pt: Yes Patient agreeable to treatment: No (refusing medication) Qualifiers: Schizophrenia type: unspecified Qualified Code(s): F20.9 - Schizophrenia, unspecified Consult Discharge Plan - Plan Referrals: NONE,PCP [Primary Care Provider] - Psychiatry Exam - Constitutional Vitals: Temp Pulse Resp BP Pulse Ox 98.0 F 99 18 107/74 98 11/10/18 09:00 11/10/18 09:00 11/10/18 09:00 11/10/18 09:00 11/10/18 09:00 General appearance: unkempt - Musculoskeletal Gait: slow Station: slouched Strength & Tone: normal for patient - Psychiatric Patient Orientation: Yes Person, Yes Time, Yes Place Level of alertness: Alert Behavior: calm, cooperative Psychomotor activity: Normal Eye Contact: Minimal Contact Mood Description: Anxious Affect description: blunted Speech Volume: Normal Speech pattern: normal rate, normal rhythm, normal tone Language & Vocabulary: consistent with education Thought Process: Thought Blocking Thought Content: No Suicidal ideation, No Homicidal ideation, Yes Paranoid delusion Perceptual Disturbances: Yes Reacting to internal stimuli Attention Span Ability: Capable of Focused Attention, Unable to Sustain Attention Memory Description: Immediate Intact, Recent Impaired, Remote Intact Patient Reliability: Questionable Historian Fund of knowledge: Yes abstraction ability, Yes aware of current events Intelligence Estimate: Average Judgment: Limited Insight: Minimal
[2018-11-10] MEDS: ARIPiprazole 5 MG TABLET PO SCH (20:26)
[2018-11-11] MEDS ORDERED: OLANZapine 10 MG VIAL IM PRN (10:09)
--- NOTE | 2018-11-11 10:19 | Psychiatry Progress Note ---
Date of Encounter: 11/11/18 Time of Encounter: 10:13 Subjective Interval history: Client chose not to attend hearing yesterday. Probate/forced meds granted. Client has been compliant with Abilify and Seroquel the past two days but symptoms have not shown any improvement. Discussed need to increase meds today or switch to a new agent. Client reported she did not have a preference between increasing doses or changing medications. Discussed taking Zyprexa tonight versus Abilify and Seroquel. This board writer has seen better clinical response to Zyprexa and client reports taking and tolerating it in the past. Has not shown any improvement with Abilify and seems overly tired on a very low dose of Seroquel. Her tolerability may be less for this medication. Needs symptom relief so would prefer to switch her to something she can better handle dose increases of. Continues to respond to IS. Isolates in room. Does not attend groups or interact with peers. No visitors. Constantly looks unkempt although she is now showering and caring better for her ADLs. Has not asked this board writer once about her baby. Review of Systems Constitutional: Denies: fever, chills, weakness, weight change Eyes: Denies: eye pain, vision change Ears, Nose, Throat: Denies: ear pain, throat pain, dental pain, hearing loss, congestion Cardiovascular: Denies: chest pain, palpitations, dyspnea on exertion Respiratory: Denies: cough, dyspnea, wheezes Gastrointestinal: Denies: abdominal pain, nausea, vomiting, diarrhea, constipation Musculoskeletal: Denies: joint swelling, joint pain Neurological: Denies: headache, weakness, numbness, memory loss Psychiatric: Reports: change in appetite. Denies: suicidal ideation, homicidal ideation, auditory hallucinations, visual hallucinations Results - Vital Signs Vital Signs: Temp Pulse Resp BP Pulse Ox 98.2 F 87 14 110/79 95 11/10/18 19:55 11/10/18 19:55 11/10/18 19:55 11/10/18 19:55 11/10/18 19:55 Assessment and Plan (1) Schizophrenia Current visit: Yes Status: Chronic Plan: Continue hospitalization, Close observation, Suicide Precautions per unit protocol, Encourage participation in unit milieu, Group Therapy, Monitor sleep, Monitor appetite Risks, benefits, side effects, alternatives discussed w/pt: Yes Patient agreeable to treatment: No (refusing medication) Qualifiers: Schizophrenia type: unspecified Qualified Code(s): F20.9 - Schizophrenia, unspecified Consult Discharge Plan - Plan Referrals: NONE,PCP [Primary Care Provider] - Psychiatry Exam - Constitutional Vitals: Temp Pulse Resp BP Pulse Ox 98.2 F 87 14 110/79 95 11/10/18 19:55 11/10/18 19:55 11/10/18 19:55 11/10/18 19:55 11/10/18 19:55 General appearance: unkempt, disheveled - Musculoskeletal Gait: slow Station: relaxed Strength & Tone: normal for patient - Psychiatric Patient Orientation: Yes Person, Yes Time, Yes Place Level of alertness: Alert Behavior: calm, cooperative Psychomotor activity: Slowed Eye Contact: No Eye Contact Mood Description: Depressed Affect description: blunted Speech Volume: Soft/Quiet Speech pattern: mumbled Language & Vocabulary: consistent with education Thought Process: Thought Blocking Thought Content: No Suicidal ideation, No Homicidal ideation, Yes Paranoid delusion Perceptual Disturbances: Yes Reacting to internal stimuli Attention Span Ability: Unable to Sustain Attention Memory Description: Immediate Intact, Recent Impaired, Remote Intact Patient Reliability: Questionable Historian Fund of knowledge: Yes abstraction ability, Yes aware of current events Intelligence Estimate: Average Judgment: Limited Insight: Minimal
[2018-11-11] MEDS ORDERED: OLANZapine 10 MG TAB.RAPDIS PO SCH (21:00)
--- NOTE | 2018-11-12 10:43 | Psychiatry Progress Note ---
Date of Encounter: 11/12/18 Time of Encounter: 10:39 Subjective Interval history: Remains actively psychotic. Continues to respond to internal stimuli and can only tolerate short interviews. According to staff she was sitting cross legged on her bed in the dark staring at the wall when they entered her room this morning. Took the Zyprexa last night but only after much encouragement. No reported or observable side effects. Will increase dose again today. Informed client of this and she expressed understanding but dose increases/med changes always make her nervous. If no improvement with Zyprexa will need to look at adding an antidepressant, switching to Clozapine or transferring to [facility]/[place] for ECT. Unsure what her baseline is but she is currently not safe to be outside a hospital setting. Review of Systems Constitutional: Denies: fever, chills, weakness, weight change Eyes: Denies: eye pain, vision change Ears, Nose, Throat: Denies: ear pain, throat pain, dental pain, hearing loss, congestion Cardiovascular: Denies: chest pain, palpitations, dyspnea on exertion Respiratory: Denies: cough, dyspnea, wheezes Gastrointestinal: Denies: abdominal pain, nausea, vomiting, diarrhea, constipation Musculoskeletal: Denies: joint swelling, joint pain Neurological: Denies: headache, weakness, numbness, memory loss Psychiatric: Reports: change in appetite. Denies: suicidal ideation, homicidal ideation, auditory hallucinations, visual hallucinations Results - Vital Signs Vital Signs: Temp Pulse Resp BP Pulse Ox 98.5 F 87 16 122/81 98 11/11/18 19:50 11/11/18 19:50 11/11/18 19:50 11/11/18 19:50 11/11/18 19:50 Assessment and Plan (1) Schizophrenia Current visit: Yes Status: Chronic Plan: Continue hospitalization, Close observation, Suicide Precautions per unit protocol, Encourage participation in unit milieu, Group Therapy, Monitor sleep, Monitor appetite Risks, benefits, side effects, alternatives discussed w/pt: Yes Patient agreeable to treatment: No (refusing medication) Qualifiers: Schizophrenia type: unspecified Qualified Code(s): F20.9 - Schizophrenia, unspecified Consult Discharge Plan - Plan Referrals: NONE,PCP [Primary Care Provider] - Psychiatry Exam - Constitutional Vitals: Temp Pulse Resp BP Pulse Ox 98.5 F 87 16 122/81 98 11/11/18 19:50 11/11/18 19:50 11/11/18 19:50 11/11/18 19:50 11/11/18 19:50 General appearance: unkempt - Musculoskeletal Gait: slow Station: relaxed Strength & Tone: normal for patient - Psychiatric Patient Orientation: Yes Person, Yes Time, Yes Place Level of alertness: Alert Behavior: calm, cooperative Psychomotor activity: Normal Eye Contact: Minimal Contact Mood Description: Anxious Affect description: blunted Speech Volume: Soft/Quiet Speech pattern: impoverished Language & Vocabulary: consistent with education Thought Process: Thought Blocking Thought Content: No Suicidal ideation, No Homicidal ideation, Yes Paranoid delusion Perceptual Disturbances: Yes Reacting to internal stimuli Attention Span Ability: Unable to Sustain Attention Memory Description: Immediate Intact, Recent Impaired, Remote Intact Patient Reliability: Not Reliable Historian Fund of knowledge: Yes abstraction ability Intelligence Estimate: Average Judgment: Limited Insight: Minimal
[2018-11-12] MEDS ORDERED: OLANZapine 5 MG TAB.RAPDIS PO SCH (21:00)
--- NOTE | 2018-11-13 10:59 | Psychiatry Progress Note ---
Date of Encounter: 11/13/18 Time of Encounter: 10:56 Subjective Interval history: Continues to be very psychotic. No observable changes with the Zyprexa. Will increase dose one more time tonight for a total of 20mg daily. If no clinical response at this dose will need to look at adding a secondary medication, switching to Clozapine, or considering a transfer for ECT treatments. Client has had limited, if any, improvements. Unsure what baseline is but she is not safe to be outside a hospital setting in her current condition. Review of Systems Constitutional: Denies: fever, chills, weakness, weight change Eyes: Denies: eye pain, vision change Ears, Nose, Throat: Denies: ear pain, throat pain, dental pain, hearing loss, congestion Cardiovascular: Denies: chest pain, palpitations, dyspnea on exertion Respiratory: Denies: cough, dyspnea, wheezes Gastrointestinal: Denies: abdominal pain, nausea, vomiting, diarrhea, co nstipation Musculoskeletal: Denies: joint swelling, joint pain Neurological: Denies: headache, weakness, numbness, memory loss Psychiatric: Reports: change in appetite. Denies: suicidal ideation, homicidal ideation, auditory hallucinations, visual hallucinations Results - Vital Signs Vital Signs: Temp Pulse Resp BP Pulse Ox 98.8 F 114 18 110/75 97 11/12/18 20:24 11/12/18 20:24 11/12/18 20:24 11/12/18 20:24 11/12/18 09:00 Assessment and Plan (1) Schizophrenia Current visit: Yes Status: Chronic Plan: Continue hospitalization, Close observation, Suicide Precautions per unit protocol, Encourage participation in unit milieu, Group Therapy, Monitor sleep, Monitor appetite Risks, benefits, side effects, alternatives discussed w/pt: Yes Patient agreeable to treatment: No (refusing medication) Qualifiers: Schizophrenia type: unspecified Qualified Code(s): F20.9 - Schizophrenia, unspecified Consult Discharge Plan - Plan Referrals: NONE,PCP [Primary Care Provider] - Psychiatry Exam - Constitutional Vitals: Temp Pulse Resp BP Pulse Ox 98.8 F 114 18 110/75 97 11/12/18 20:24 11/12/18 20:24 11/12/18 20:24 11/12/18 20:24 11/12/18 09:00 General appearance: disheveled - Musculoskeletal Gait: normal Station: relaxed Strength & Tone: normal for patient - Psychiatric Patient Orientation: Yes Person, Yes Place Level of alertness: Alert Behavior: calm, cooperative Psychomotor activity: Slowed Eye Contact: Minimal Contact Mood Description: Other Affect description: blunted Speech Volume: Soft/Quiet Speech pattern: mumbled Language & Vocabulary: consistent with education Thought Process: Thought Blocking Thought Content: No Suicidal ideation, No Homicidal ideation, Yes Paranoid delusion Perceptual Disturbances: Yes Reacting to internal stimuli Attention Span Ability: Unable to Sustain Attention Memory Description: Immediate Intact, Recent Impaired, Remote Intact Patient Reliability: Not Reliable Historian Fund of knowledge: Yes abstraction ability Intelligence Estimate: Average Judgment: Limited Insight: Minimal
[2018-11-13] MEDS: OLANZapine 10 MG TAB.RAPDIS PO SCH (20:35)
--- NOTE | 2018-11-14 13:31 | Psychiatry Progress Note ---
Date of Encounter: 11/14/18 Time of Encounter: 10:30 Subjective Interval history: Patient was seen today in her room. She continues to be flat in affect. It appears that she has slightly improved verbalizations compared to admission. However, she continues to show disorganization. When this provider introduced herself, the patient started listing off doctors that she had seen while she was here. She was unable to tell this provider how she is feeling and if she is having issues with sleep and appetite. She was able to admit to depression and denied anxiety. She uses the phrase "I do not know" to answer several questions. She does admit to increased thirst but does not know if it is due to medications. When asked about auditory hallucinations, she states, "I do not know; you are the doctor." She denied visual hallucinations. However, she continued to look up and to the left where there was a corner. When mildly depressed on why she was looking at that place, suggesting there might be something there, she states, "I am not looking at the corner at all." She denied suicidal and homicidal ideation. Review of Systems Psychiatric: Reports: depression. Denies: anxiety, suicidal ideation, homicidal ideation, auditory hallucinations (Could not tell this provider if she is having auditory hallucinations), visual hallucinations Endocrine: Reports: other (Increased thirst) Results - Vital Signs Vital Signs: Temp Pulse Resp BP Pulse Ox 98.0 F 94 18 102/69 99 11/14/18 08:30 11/14/18 08:30 11/14/18 08:30 11/14/18 08:30 11/14/18 08:30 - Drug Levels and Toxicology Drug Levels and Toxicology: None noted this a.m. - Labs Labs: None noted this a.m. - Impressions None noted this a.m. Assessment and Plan (1) Schizophrenia Current visit: Yes Status: Chronic Plan: Continue hospitalization, Close observation, Suicide Precautions per unit protocol, Encourage participation in unit milieu, Group Therapy, Monitor sleep, Monitor appetite Additional Plan: -Patient continues to show disorganization, flat affect, and response to internal stimuli. She appears somewhat but minimally improved since admission. As such, patient may need an augmenting agent or neuromodulation. However, she was just placed on high-dose olanzapine. This medication, as many antipsychotic medications are, may take time to work on this level of psychosis. As such, we will make no changes at the present and watchfully wait for possible improvement. -Patient continues to be on probate status with forced medication order. -Continue olanzapine 20 mg by mouth daily at bedtime for psychosis. 5 mg IM dose also available if patient refuses. -Continue PRN medication as needed for agitation -Continue hydroxyzine 25 mg by mouth 3 times a day when necessary for anxiety -Continue trazodone 50 mg by mouth daily at bedtime when necessary for sleep -Encouraged group participation while on the unit. Patient has not attended any groups and is retreating to her room. -Anticipate discharge when more psychiatrically stable. Risks, benefits, side effects, alternatives discussed w/pt: No (No changes made this a.m.) Patient agreeable to treatment: Yes (Forced medication order in place the patient is adherent to medication) Qualifiers: Schizophrenia type: other Qualified Code(s): F20.89 - Other schizophrenia; F20.8 - Other schizophrenia Consult Discharge Plan - Plan Referrals: NONE,PCP [Primary Care Provider] - - Attending Attestation I examined this patient and my medical decision-making was reviewed with the Resident Physician. I agree with the documented findings, disposition and treatment plan as described except to the extent set forth below. Psychiatry Exam - Constitutional Vitals: Temp Pulse Resp BP Pulse Ox 98.0 F 94 18 102/69 99 11/14/18 08:30 11/14/18 08:30 11/14/18 08:30 11/14/18 08:30 11/14/18 08:30 General appearance: age & developmentally appropriate, well-nourished, unkempt (Unkempt hair noted), thin (But not ill appearing) - Musculoskeletal Gait: other (Not assessed) Station: relaxed Strength & Tone: normal for patient (Grossly) - Psychiatric Patient Orientation: Yes Person, Yes Time, Yes Place, No Circumstance (Could not tell this provider who the president was or what holiday it was today) Level of alertness: Alert, Follows commands Behavior: calm, guarded Psychomotor activity: Slowed Eye Contact: Minimal Contact Mood Description: Other Patient description of mood: "I do not know" Affect description: congruent with mood, flat Speech Volume: Soft/Quiet, No variation in volume Speech pattern: normal rate, normal tone, fluent, spontaneous, monotone (Severely decreased prosody) Language & Vocabulary: consistent with education Thought Process: Loose Associations (Mild), Disorganized Thought Content: No Suicidal ideation, No Homicidal ideation, No Overt delusions Perceptual Disturbances: Yes Reacting to internal stimuli, No Auditory hallucinations (Could not tell this provider if she was having auditory hallucinations), No Visual hallucinations Attention Span Ability: Capable of Focused Attention, Unable to Sustain Attention Memory Description: Grossly Intact Patient Reliability: Questionable Historian Fund of knowledge: Yes average Intelligence Estimate: Average Judgment: Limited Insight: Minimal
[2018-11-14 14:35] LABS: Basophils % 0.6 %; Eosinophils # 0.2 K/mcL (0.0-0.6); Eosinophils % 3.1 %; Hematocrit 42.3 % (35.3-44.9); Hemoglobin 13.2 g/dL (11.5-15.4); Immature Granulocytes % 0.1 % (0-4); Lymphocytes # 2.5 K/mcL (0.6-4.6); Lymphocytes % 36.7 %; Mean Corpuscular HGB Conc 31.2 g/dL (31.6-35.5); Mean Corpuscular Hemoglobin 25.8 pg (28.0-33.3); Mean Corpuscular Volume 82.6 fL (83.0-100.0); Mean Platelet Volume 11.4 fL (9.4-12.4); Monocytes # 0.3 K/mcL (0.0-1.3); Monocytes % 4.9 %; Neutrophils # 3.6 K/mcL (1.6-8.9); Platelet Count 246 K/mcL (140-400); Red Blood Count 5.12 M/mcL (3.82-4.97); Red Cell Distribution Width 14.5 % (11.5-14.5); Segmented Neutrophils % 54.6 %
[2018-11-14 16:16] LABS: Alanine Aminotransferase 6 Units/L (7-52); Albumin 3.9 g/dL (3.5-5.7); Albumin/Globulin Ratio 1.2 (1.1-2.2); Alkaline Phosphatase 96 Units/L (34-104); Aspartate Amino Transferase 9 Units/L (13-39); BUN/Creatinine Ratio 19 (6-26); Bilirubin,Total 0.6 mg/dL (0.3-1.0); Blood Urea Nitrogen 15 mg/dL (6-20); Calcium 9.4 mg/dL (8.6-10.3); Carbon Dioxide 25 mEq/L (23-29); Chloride 109 mEq/L (98-107); Globulin 3.3 g/dL (2.4-3.5); Glucose 76 mg/dL (70-105); Osmolality,Calculated 296 (280-300); Sodium 143 mEq/L (136-145); Total Protein 7.2 g/dL (6.4-8.9); eGFR For Non-African Americans > 60 (> 60)
[2018-11-14 16:22] LABS: Thyroid Stimulating Hormone 1.324 mcIU/mL (0.340-5.600)
[2018-11-14] MEDS: OLANZapine 10 MG TAB.RAPDIS PO SCH (20:49)
--- NOTE | 2018-11-15 13:53 | Internal Medicine Consult Note ---
Date of Encounter: 11/15/18 Time of Encounter: 13:53 - Assessment and Plan (1) Schizophrenia Current Visit: Yes Status: Chronic Qualifiers: Schizophrenia type: other Qualified Code(s): F20.89 - Other schizophrenia; F20.8 - Other schizophrenia - Time Spent With Patient Total time spent is greater than 50% in coordination of care (as documented) at patient's floor/unit and/or counseling patient: Internal Medicine - CN: HPI - Data of Consult Patient: new to practice Consult date: 11/15/18 Requesting Physician: Brianna Salazar - Consult Narrative Reason for consult: Not eating or drinking - dehydration History of present illness: Ms. Tran is a 33 year old female information obtained from medical records and staff dt patient mental state and she is withdrawn and guarded. According to records - patient was a direct admit from [facility] after giving at home on 11/08/18 to a baby boy in the toilet. Apparently she found she was in August 2018 but did not believe it and she had no care . After the the patient was indifferent to the baby - she has a hx of schizophrenia. During her admission to [facility] she has been withdrawn and has not practicing any hygiene as well as has poor oral intake. Her BP has been dropping and she has been tachycardia. Hospitalist services have been consulted for concerns of dehydration . Currently lab work does appear stable however she is tachycardic with systolic in the 90. She appears disheveled she is guarded during our conversation, answering only yes or no. She will not allow me to complete physical assessment. Discussed case with Dr Meza and Past[facility] on 1[facility] She will require some IV fluid- she is currently probated to this unit with forced medications, will not be able to transfer off unit- [facility] did inform that they can keep her on the unit and give 1 L fluid bolus. She will receive 1 L an d we will evaluate in am . Past Med Surg Social Fam HX - Past Medical History Medical history: other (vaginal child at home on 10/29/18) Additional medical history: borderline DM, ovarian cyst Psychiatric history: schizophrenia (per review of direct admit records) - Past Surgical History Additional surgical history: no surgeries - Social History Smoking Status: Unknown if ever smoked Smokeless Tobacco Status: No Alcohol use: none Drug use: none ROS unobtainable: due to mental status Internal Medicine - CN: Meds Unable To Obtain [Unable to Obtain] 11/01/18 [History] Allergy/AdvReac Type Severity Reaction Status Date / Time Cyclobenzaprine AdvReac Anaphylaxis Verified 10/31/18 20:16 [From Flexeril] Hospitalist - CN: Exam - Constitutional Vitals: Temp Pulse Resp BP Pulse Ox 98.6 F 116 16 97/64 96 11/15/18 09:00 11/15/18 09:00 11/15/18 09:00 11/15/18 09:00 11/15/18 09:00 General appearance IM: Present: disheveled, A&O X 2 Exam: . - ENT ENT exam: Present: mucous membranes dry - Expanded ENT Exam Mouth exam: Present: dry mucosa - Neck Neck exam general surgery: Present: full ROM, normal inspection - Respiratory Respiratory exam: Present: CTAB - Cardiovascular Cardiovascular exam IM: Present: tachycardia - GI/Abdominal Additional comments: patient would not allow me to assess - Rectal Rectal exam: Present: deferred - Expanded Exam Female exam: Present: deferred Internal Medicine - CN: Reslt - Labs CBC & Chem 7: 11/14/18 14:21 11/14/18 14:21 Labs: Short CBC 11/14/18 Range/Units 14:21 WBC 6.7 (4.3-11.1) K/mcL Hgb 13.2 (11.5-15.4) g/dL Hct 42.3 (35.3-44.9) % Plt Count 246 (140-400) K/mcL Neutrophils # 3.6 (1.6-8.9) K/mcL BMP 11/14/18 14:21 Sodium 143 Potassium 4.0 Chloride 109 H Carbon Dioxide 25 BUN 15 Creatinine 0.78 Glucose 76 Calcium 9.4 Liver Function 11/14/18 Range/Units 14:21 Total Bilirubin 0.6 (0.3-1.0) mg/dL AST 9 L (13-39) Units/L ALT 6 L (7-52) Units/L Alkaline Phosphatase 96 (34-104) Units/L Albumin 3.9 (3.5-5.7) g/dL Consult Discharge Plan - Plan Referrals: NONE,PCP [Primary Care Provider] -
[2018-11-15] MEDS ORDERED: 0.9 % Sodium Chloride 1,000 ML IVC ONE (15:36)
--- NOTE | 2018-11-15 16:15 | Psychiatry Progress Note ---
Addendum entered and electronically signed by Brianna Salazar MD 11/16/18 07:50: I examined this patient and my medical decision-making was reviewed with the Darrell pepper Physician. I agree with the documented findings, disposition and treatment plan as described except to the extent set forth below. Original Note: Date of Encounter: 11/15/18 Time of Encounter: 12:10 Subjective Interval history: Patient was seen today laying in her bed awake and staring at the ceiling. This provider asked if my medical student. Observe the interview, but the patient was very paranoid and rejecting of that idea. When asked how she was, patient states, "I do not know." She also admits to not knowing if she is depressed. Different from previous, she did admit to anxiety, stating, "kind of, but not too bad." She denies issues with sleep. She reports that she is not eating much but did drink an orange juice with ice today. She does admit to the side effect of increased thirst. She denies SI, HI, AH, and VH. She did have some response to internal stimuli, but it was not as pronounced as yesterday. This morning, patient had tachycardia and hypertension, which is not her baseline. It was noted by nursing staff the patient had not been eating or consuming much fluid. A medical consult was placed, with concerns that dehydration the patient was experiencing could possibly lead to severe side effects of her high-dose antipsychotic medication, including neuroleptic malignant syndrome. The patient meeting probated to this unit with forced medications, procedure was put into place for patient to receive IV fluids on the unit. Review of Systems Psychiatric: Reports: anxiety, change in appetite. Denies: depression, abnormal sleep pattern, suicidal ideation, homicidal ideation, auditory hallucinations, visual hallucinations Endocrine: Reports: other (Increased feelings of thirst) Results - Vital Signs Vital Signs: Temp Pulse Resp BP Pulse Ox 98.6 F 116 16 97/64 96 11/15/18 09:00 11/15/18 09:00 11/15/18 09:00 11/15/18 09:00 11/15/18 09:00 - Drug Levels and Toxicology Drug Levels and Toxicology: None noted this a.m. - Labs Labs: Laboratory Results - last 24 hr 11/14/18 11/14/18 14:21 14:21 Sodium 143 Potassium 4.0 Chloride 109 H Carbon Dioxide 25 BUN 15 Creatinine 0.78 Est GFR ( Amer) > 60 Est GFR (Non-Af Amer) > 60 BUN/Creatinine Ratio 19 Glucose 76 Calculated Osmolality 296 Calcium 9.4 Total Bilirubin 0.6 AST 9 L ALT 6 L Alkaline Phosphatase 96 Serum Total Protein 7.2 Albumin 3.9 Globulin 3.3 Albumin/Globulin Ratio 1.2 TSH 1.324 T.pallidum Ab Interpret Negative - Impressions None noted this a.m. Assessment and Plan (1) Schizophrenia Current visit: Yes Status: Chronic Plan: Continue hospitalization, Close observation, Suicide Precautions per unit protocol, Encourage participation in unit milieu, Group Therapy, Monitor sleep, Monitor appetite Additional Plan: -Patient continues to show disorganization, flat affect, and response to internal stimuli. She appears somewhat but minimally improved since admission. As such, patient may need an augmenting agent or neuromodulation. There was t hought to start lithium today. However, with patient's dehydration status, we will not initiate lithium at this time. -Patient will receive IV bolus while on inpatient psychiatric unit to stabilize acute dehydration. Patient will be closely monitored while bolus is given -Patient continues to be on probate status with forced medication order. -Continue olanzapine 20 mg by mouth daily at bedtime for psychosis. 5 mg IM dose also available if patient refuses. -Continue PRN medication as needed for agitation -Continue hydroxyzine 25 mg by mouth 3 times a day when necessary for anxiety -Continue trazodone 50 mg by mouth daily at bedtime when necessary for sleep -Encouraged group participation while on the unit. Patient has not attended any groups and is retreating to her room. -Encourage mealtime and adequate oral hydration -Anticipate discharge when more psychiatrically stable. Risks, benefits, side effects, alternatives discussed w/pt: No (No changes made this a.m.) Patient agreeable to treatment: Yes (Forced medication order in place the patient is adherent to medication) Qualifiers: Schizophrenia type: other Qualified Code(s): F20.89 - Other schizophrenia; F20.8 - Other schizophrenia Consult Discharge Plan - Plan Referrals: NONE,PCP [Primary Care Provider] - Psychiatry Exam - Constitutional Vitals: Temp Pulse Resp BP Pulse Ox 98.6 F 116 16 97/64 96 11/15/18 09:00 11/15/18 09:00 11/15/18 09:00 11/15/18 09:00 11/15/18 09:00 General appearance: age & developmentally appropriate, well-groomed, unkempt, thin (But not well-appearing) - Musculoskeletal Gait: other (Not assessed) Station: relaxed Strength & Tone: normal for patient (Grossly) - Psychiatric Patient Orientation: Yes Person, Yes Time, Yes Place, No Circumstance (Was unable to tell me who the president was) Level of alertness: Alert, Follows commands Behavior: calm, guarded Psychomotor activity: Slowed Eye Contact: Minimal Contact Mood Description: Other Patient description of mood: "I do not know" Affect description: flat Speech Volume: Soft/Quiet Speech pattern: normal tone, spontaneous, slowed (Mildly decreased rate), monotone Thought Process: Logical, Linear, Goal Oriented, [place] (Only answering questions in 2-3 words) Thought Content: No Suicidal ideation, No Homicidal ideation, No Overt delusions Perceptual Disturbances: Yes Reacting to internal stimuli, No Auditory hallucinations, No Visual hallucinations Attention Span Ability: Capable of Focused Attention Memory Description: Grossly Intact Patient Reliability: Questionable Historian Fund of knowledge: Yes aware of current events Intelligence Estimate: Average Judgment: Limited Insight: Minimal
[2018-11-15] MEDS: OLANZapine 10 MG TAB.RAPDIS PO SCH (20:15)
--- NOTE | 2018-11-16 13:05 | Psychiatry Progress Note ---
Date of Encounter: 11/16/18 Time of Encounter: 09:45 Subjective Interval history: Patient was given an IV bolus yesterday witnessed by staff. She was somewhat suspicious and paranoid of the treatment, but was cooperative. Today, she does demonstrate tachycardia but is not hypotensive. Her coloring has also improved. Patient was seen today in her room. She was acceptable for the medical student to observe, which had not been the case previously. She continues to be flat in affect and somewhat suspicious of others in her facial appearance. When asked how she is doing today, she reports "I feel a little better." I attempted to ask about her communication with her boyfriend and his mother. She denies that she has spoken with them. When asked if she wanted to talk about her baby, she declined. When asked if she had depression, she reports, "kind of." This answer is in contrast to previous answers, which she said "I do not know." She reports that she did not want to speak about the issues causing her depression. When asked how her anxiety was, she reported I do not know." When asked why she did not know what her feelings were, she reports that "they are hard to describe." She states that she was able to eat some today. She denies issues with sleep. Denies side effects to medication. She does admit to homicidal ideation. When asked who it was she was having thoughts about, she responded, "I do not know." She then explained that she could not tell this provider. When asked if it was someone on the unit, she states, "no, I do not think so." She denies SI, AH, and VH. Review of Systems Psychiatric: Reports: depression, change in appetite (Improved), homicidal ideation (Will not tell this provider who, but she reports that is not someone on the unit). Denies: anxiety ("I do not know"), abnormal sleep pattern, s uicidal ideation, auditory hallucinations, visual hallucinations Endocrine: Reports: other (Denies dehydration today) Results - Vital Signs Vital Signs: Temp Pulse Resp BP Pulse Ox 98.8 F 109 19 95/67 97 11/16/18 08:32 11/16/18 08:32 11/16/18 08:32 11/16/18 08:33 11/16/18 08:32 - Drug Levels and Toxicology Drug Levels and Toxicology: None noted this a.m. - Labs Labs: None noted this a.m. - Impressions None noted this a.m. Assessment and Plan (1) Schizophrenia Current visit: Yes Status: Chronic Plan: Continue hospitalization, Close observation, Suicide Precautions per unit protocol, Encourage participation in unit milieu, Group Therapy, Monitor sleep, Monitor appetite Additional Plan: -[place] may be an option for augmentation for this patient's psychosis. However, due to her recent dehydration status, we will hold off on giving this medicine at this time. -IV bolus of fluids appeared to assist the patient, who appears more medically stable today -Patient continues to be on probate status with forced medication order. -Start mirtazapine 7.5 mg by mouth daily at bedtime for mood, as this medication can have an appetite stimulating effect with weight gain -Continue olanzapine 20 mg by mouth daily at bedtime for psychosis. 5 mg IM dose also available if patient refuses. -Continue PRN medication as needed for agitation -Continue hydroxyzine 25 mg by mouth 3 times a day when necessary for anxiety -Continue trazodone 50 mg by mouth daily at bedtime when necessary for sleep -Nutrition consult placed who recommends a regular diet with 3 times a day Ensure supplementation -Encouraged group participation while on the unit. Patient has not attended any groups and is retreating to her room. -Encourage mealtime and adequate oral hydration -Anticipate discharge when more psychiatrically stable. Risks, benefits, side effects, alternatives discussed w/pt: No (No changes made this a.m.) Patient agreeable to treatment: Yes (Forced medication order in place the patient is adherent to medication) Qualifiers: Schizophrenia type: other Qualified Code(s): F20.89 - Other schizophrenia; F20.8 - Other schizophrenia Consult Discharge Plan - Plan Referrals: NONE,PCP [Primary Care Provider] - - Attending Attestation I examined this patient and my medical decision-making was reviewed with the Resident Physician. I agree with the documented findings, disposition and treatment plan as described except to the extent set forth below. Psychiatry Exam - Constitutional Vitals: Temp Pulse Resp BP Pulse Ox 98.8 F 109 19 95/67 97 11/16/18 08:32 11/16/18 08:32 11/16/18 08:32 11/16/18 08:33 11/16/18 08:32 General appearance: age & developmentally appropriate, well-groomed, well- nourished, thin (But not ill appearing) - Musculoskeletal Gait: other (Not assessed) Station: relaxed Strength & Tone: normal for patient (Grossly) - Psychiatric Patient Orientation: Yes Person, Yes Time, Yes Place, No Circumstance (Cannot tell this person the name of the president, any holidays that are close, or the season) Level of alertness: Alert, Follows commands Behavior: calm, guarded Psychomotor activity: Slowed Eye Contact: Minimal Contact Patient description of mood: "A little better" Affect description: flat, inappropriate to situation (Suspicious, paranoid looks on her face that do not match the words that she speaks) Speech Volume: Soft/Quiet Speech pattern: normal tone, fluent, spontaneous, limited, monotone, other (We will increase her tone at times and will decrease as other times) Language & Vocabulary: consistent with education Thought Process: Logical (More organized than usual. Continues to be concrete with little explanation of the answers), Linear, Goal Oriented, [place] Thought Content: No Suicidal ideation, Yes Homicidal ideation (Reports homicidal ideation towards someone On the unit but would not tell this provider exactly who), No Overt delusions Perceptual Disturbances: No Reacting to internal stimuli (Did not appear to be reacting to internal stimuli this a.m.), No Auditory hallucinations, No Visual hallucinations Attention Span Ability: Capable of Focused Attention Memory Description: Grossly Intact Patient Reliability: Questionable Historian Fund of knowledge: Yes aware of current events Intelligence Estimate: Average Judgment: Limited Insight: Minimal
[2018-11-16 13:40] LABS: Alanine Aminotransferase 6 Units/L (7-52); Albumin 3.8 g/dL (3.5-5.7); Albumin/Globulin Ratio 1.3 (1.1-2.2); Alkaline Phosphatase 87 Units/L (34-104); Aspartate Amino Transferase 11 Units/L (13-39); BUN/Creatinine Ratio 18 (6-26); Bilirubin,Total 0.5 mg/dL (0.3-1.0); Blood Urea Nitrogen 14 mg/dL (6-20); Calcium 8.9 mg/dL (8.6-10.3); Carbon Dioxide 25 mEq/L (23-29); Chloride 109 mEq/L (98-107); Globulin 2.9 g/dL (2.4-3.5); Glucose 84 mg/dL (70-105); Osmolality,Calculated 296 (280-300); Potassium 3.9 mEq/L (3.5-5.1); Sodium 143 mEq/L (136-145); Total Protein 6.7 g/dL (6.4-8.9); eGFR For Non-African Americans > 60 (> 60)
--- NOTE | 2018-11-16 15:03 | Internal Med Progress Note ---
Hospitalist Progress Note - Encounter Date of Encounter: 11/16/18 Time of Encounter: 14:00 - Subjective Interval History: Patient received IV fluids last night. She has been eating a little since this morning. Denies any new complaints at this time. - Exam Vitals: Temp Pulse Resp BP Pulse Ox 98.8 F 109 19 95/67 97 11/16/18 08:32 11/16/18 08:32 11/16/18 08:32 11/16/18 08:33 11/16/18 08:32 Exam: General: Patient is alert, no acute distress, oriented x 3 Respiratory: Good respiratory effort. Normal breath sounds. No wheezing or crackles. Cardiovascular: Regular rate and rhythm. Tachycardic. s1 and s2 normal No clicks, rubs, gallops, or murmurs. No pedal edema Abdomen: Abdomen is soft, nontender. Bowel sounds are present Musculoskeletal: Spontaneously moving all extremities Skin: warm, dry, intact. Psych: Flat affect - Assessment and Plan (1) Schizophrenia Current Visit: Yes Status: Chronic Assessment and Plan: Continue management per psychiatry. Patient is currently on probate hold in inpatient psychiatric unit. (2) Dehydration Current Visit: Yes Status: Acute Assessment and Plan: Patient received IV fluids overnight. Doing better today. He remains tachycardic but reviewing her records, she has been tachycardic intermittently throughout her stay here. Reviewed orthostatic blood pressure. No signs of orthostasis. When I was in the room, she was ambulating without any dizziness. Do not recommend any further IV fluids at this time. However patient may receive intravenous fluids intermittently if she continues to avoid drinking fluids or eating any food. At this time we will sign off. Please call us with any further questions or needs. - Time Spent with Patient Total time spent is greater than 50% in coordination of care (as documented) at patient's floor/unit and/or counseling patient: Plan of Care Discussed with: nurse Internal Medicine: Result - Labs CBC & Chem 7: 11/14/18 14:21 11/16/18 12:38 Labs: BMP 11/16/18 12:38 Sodium 143 Potassium 3.9 Chloride 109 H Carbon Dioxide 25 BUN 14 Creatinine 0.76 Glucose 84 Calcium 8.9 Liver Function 11/16/18 Range/Units 12:38 Total Bilirubin 0.5 (0.3-1.0) mg/dL AST 11 L (13-39) Units/L ALT 6 L (7-52) Units/L Alkaline Phosphatase 87 (34-104) Units/L Albumin 3.8 (3.5-5.7) g/dL - VTE Reasons for not Prescribing Prophylaxis: Treatment not Indicated - Low risk for VTE Consult Discharge Plan - Plan Referrals: NONE,PCP [Primary Care Provider] - (1) Schizophrenia Qualifiers: Schizophrenia type: other Qualified Code(s): F20.89 - Other schizophrenia; F20.8 - Other schizophrenia
[2018-11-16] MEDS: OLANZapine 10 MG TAB.RAPDIS PO SCH (21:12)
[2018-11-16] MEDS: Mirtazapine 15 MG TABLET PO SCH (21:13)
--- NOTE | 2018-11-17 07:59 | Psychiatry Progress Note ---
Date of Encounter: 11/17/18 Time of Encounter: 07:57 Subjective Interval history: Patient says she is only eating breakfast because that is what I told her the other day (I saw before breakfast and asked her to eat her breakfast and she interpreted this as only having to eat breakfast). Very concrete and literal. Still seems to be responding to internal stimuli and has bizarre and paranoid thoughts about the baby having already been born. Not caring for ADLs. Tolerated remeron. Review of Systems Psychiatric: Reports: depression, change in appetite (Improved), homicidal ideation (Will not tell this provider who, but she reports that is not someone on the unit), auditory hallucinations, confusion, difficulty concentrating. Denies: anxiety ("I do not know"), abnormal sleep pattern, suicidal ideation, visual hallucinations Results - Vital Signs Vital Signs: Temp Pulse Resp BP Pulse Ox 98.1 F 98 18 104/74 99 11/16/18 20:36 11/16/18 20:36 11/16/18 20:36 11/16/18 20:36 11/16/18 20:36 - Labs Labs: Laboratory Results - last 24 hr 11/16/18 11/16/18 12:38 12:38 Sodium 143 Potassium 3.9 Chloride 109 H Carbon Dioxide 25 BUN 14 Creatinine 0.76 Est GFR ( Amer) > 60 Est GFR (Non-Af Amer) > 60 BUN/Creatinine Ratio 18 Glucose 84 Calculated Osmolality 296 Calcium 8.9 Magnesium 2.0 Total Bilirubin 0.5 AST 11 L ALT 6 L Alkaline Phosphatase 87 Serum Total Protein 6.7 Albumin 3.8 Globulin 2.9 Albumin/Globulin Ratio 1.3 Prealbumin 25.1 Assessment and Plan (1) Schizophrenia Current visit: Yes Status: Chronic Plan: Continue hospitalization, Close observation, Suicide Precautions per unit protocol, Encourage participation in unit milieu, Group Therapy, Monitor sleep, Monitor appetite Additional Plan: Continue Remeron and Zyprexa. Continue encouraging eating all meals. She now has boost 3 times a day. She was seen by nutrition. Encourage group attendance. We have encouraged her multiple times to call the baby's father and his mother as that is where she was living to see if she is welcome back there for discharge planning however she has yet to do this. Risks, benefits, side effects, alternatives discussed w/pt: No (No changes made this a.m.) Patient agreeable to treatment: Yes (Forced medication order in place the patient is adherent to medication) Qualifiers: Schizophrenia type: other Qualified Code(s): F20.89 - Other schizophrenia; F20.8 - Other schizophrenia Consult Discharge Plan - Plan Referrals: NONE,PCP [Primary Care Provider] - Psychiatry Exam - Constitutional Vitals: Temp Pulse Resp BP Pulse Ox 98.1 F 98 18 104/74 99 11/16/18 20:36 11/16/18 20:36 11/16/18 20:36 11/16/18 20:36 11/16/18 20:36 General appearance: disheveled, malodorous, malnourished - Musculoskeletal Gait: slow Station: stooped Strength & Tone: mild weakness - Psychiatric Patient Orientation: Yes Person, Yes Time, Yes Place Level of alertness: Alert Behavior: withdrawn Psychomotor activity: Slowed Eye Contact: Minimal Contact Mood Description: Other (flat) Patient description of mood: "I don't know, why do you ask" Affect description: flat Speech Volume: Soft/Quiet Speech pattern: slowed, disorganized, impoverished Language & Vocabulary: consistent with education Thought Process: Thought Blocking, Slowed Thinking Thought Content: Yes Preoccupation, Yes Paranoid delusion Perceptual Disturbances: Yes Reacting to internal stimuli, Yes Auditory hallucinations Attention Span Ability: Unable to Focus, Unable to Sustain Attention Memory Description: Immediate Impaired, Recent Impaired, Remote Impaired Patient Reliability: Not Reliable Historian Fund of knowledge: Yes average Intelligence Estimate: Average Judgment: Poor Insight: None
[2018-11-17] MEDS: Mirtazapine 15 MG TABLET PO SCH (21:17)
[2018-11-17] MEDS: OLANZapine 10 MG TAB.RAPDIS PO SCH (21:17)
--- NOTE | 2018-11-18 10:56 | Psychiatry Progress Note ---
Date of Encounter: 11/18/18 Time of Encounter: 08:45 Subjective Interval history: Ms. Tran is a 33 year old female who was admitted for psychosis. She is currently on court ordered medications. She states that her mood is "I don't know," as is her sleep. She did shower yesterday, but nursing staff reported that she did not wash her hair. Patient has been very concrete, only doing things that the physicians specifically ask her to do. Patient states that does not know if she has depression or anxiety. She denies suicidal and homicidal ideation. When asked why she has not been attending groups, she states "I don't like to go to groups." Patient has still been retreating to her room. Patient does know that it is November 18, 2018. She is also able to state her 's date. She has not reached out to her boyfriend or his mother (with whom she was living). Review of Systems Psychiatric: Reports: anxiety ("I do not know"), abnormal sleep pattern, change in appetite (appetite is improving per nursing staff), confusion. Denies: suicidal ideation, homicidal ideation, auditory hallucinations, visual hallucinations Results - Vital Signs Vital Signs: Temp Pulse Resp BP Pulse Ox 97.8 F 128 18 110/75 97 11/17/18 19:53 11/17/18 19:53 11/17/18 19:53 11/17/18 19:53 11/17/18 19:53 Assessment and Plan (1) Schizophrenia Current visit: Yes Status: Chronic Additional Plan: 1. Continue Remeron and Zyprexa. 2. Continue encouraging eating all meals. Continue boost. She now has boost 3 times a day. 3. Continue to encourage group attendance. 4. Patient still does not want to speak with Tarsha or [place], with whom she was living. 5. Anticipate discharge next week. Seeing as patient has not contacted Tarsha Nath to see if she is welcome back, patient will likely be referred elsewhere. Risks, benefits, side effects, alternatives discussed w/pt: No (No changes made.) Patient agreeable to treatment: Yes (Court ordered medications are in place. Patient is agreeable.) Qualifiers: Schizophrenia type: other Qualified Code(s): F20.89 - Other schizophrenia; F20.8 - Other schizophrenia Consult Discharge Plan - Plan Referrals: NONE,PCP [Primary Care Provider] - - Attending Attestation I examined this patient and my medical decision-making was reviewed with the Resident Physician. I agree with the documented findings, disposition and treatment plan as described except to the extent set forth below. Psychiatry Exam - Constitutional Vitals: Temp Pulse Resp BP Pulse Ox 97.8 F 128 18 110/75 97 11/17/18 19:53 11/17/18 19:53 11/17/18 19:53 11/17/18 19:53 11/17/18 19:53 General appearance: age & developmentally appropriate, unkempt, average - Musculoskeletal Station: relaxed Strength & Tone: normal for patient - Psychiatric Patient Orientation: Yes Person, Yes Time, Yes Place, Yes Circumstance Level of alertness: Alert Behavior: guarded, withdrawn (retreating to her room) Psychomotor activity: Normal Eye Contact: Minimal Contact Mood Description: Euthymic/stable Patient description of mood: "I don't know" Affect description: flat Speech Volume: Soft/Quiet Speech pattern: clear, coherent Language & Vocabulary: limited (often replies with "I don't know," but will sometimes respond with full sentences) Thought Process: [place], Slowed Thinking Thought Content: No Suicidal ideation, No Homicidal ideation Perceptual Disturbances: No Reacting to internal stimuli Attention Span Ability: Unable to Focus Memory Description: Recent Intact Patient Reliability: Not Reliable Historian Fund of knowledge: Yes average Intelligence Estimate: Average Judgment: Limited Insight: Minimal
[2018-11-18] MEDS: Mirtazapine 15 MG TABLET PO SCH (21:02)
[2018-11-18] MEDS: OLANZapine 10 MG TAB.RAPDIS PO SCH (21:02)
--- NOTE | 2018-11-19 08:23 | Psychiatry Progress Note ---
Date of Encounter: 11/19/18 Time of Encounter: 08:07 Subjective Interval history: Patient continues to be distractable and to be responding to internal stimuli but denies hallucinations. SHe has poor hygiene and even when she showered 2 days ago she did not wash her hair. She needs encouragement to eat. He is tolerating medications. She still has no connection to the baby. Review of Systems Psychiatric: Reports: anxiety ("I do not know"), abnormal sleep pattern, change in appetite (appetite is improving per nursing staff), auditory hallucinations, confusion. Denies: suicidal ideation, homicidal ideation, visual hallucinations Results - Vital Signs Vital Signs: Temp Pulse Resp BP Pulse Ox 97.8 F 111 16 93/64 98 11/18/18 20:09 11/18/18 20:09 11/18/18 20:09 11/18/18 20:09 11/18/18 20:09 Assessment and Plan (1) Schizophrenia Current visit: Yes Status: Chronic Plan: Continue hospitalization, Close observation, Suicide Precautions per unit protocol, Encourage participation in unit milieu, Group Therapy, Monitor sleep, Monitor appetite Additional Plan: Continue current medications. Consider increase in Zyprexa. Therapists working on discharge planning. Consider [facility] for placement Risks, benefits, side effects, alternatives discussed w/pt: No (No changes made.) Patient agreeable to treatment: Yes (Court ordered medications are in place. Patient is agreeable.) Qualifiers: Schizophrenia type: other Qualified Code(s): F20.89 - Other schizophrenia; F20.8 - Other schizophrenia Consult Discharge Plan - Plan Referrals: NONE,PCP [Primary Care Provider] - Psychiatry Exam - Constitutional Vitals: Temp Pulse Resp BP Pulse Ox 97.8 F 111 16 93/64 98 11/18/18 20:09 11/18/18 20:09 11/18/18 20:09 11/18/18 20:09 11/18/18 20:09 General appearance: disheveled, malodorous - Musculoskeletal Gait: slow Station: stooped Strength & Tone: normal for patient - Psychiatric Patient Orientation: Yes Person, Yes Time, Yes Place Level of alertness: Alert Behavior: guarded, suspicious, withdrawn Psychomotor activity: Slowed Eye Contact: Fleeting Contact Mood Description: Other (Flat) Patient description of mood: I do not know Affect description: flat Speech Volume: Soft/Quiet Speech pattern: slowed Thought Process: Thought Blocking, [place] Thought Content: No Suicidal ideation, No Homicidal ideation Perceptual Disturbances: Yes Reacting to internal stimuli, Yes Auditory hallucinations Attention Span Ability: Unable to Focus, Unable to Sustain Attention Memory Description: Grossly Intact Patient Reliability: Questionable Historian Fund of knowledge: Yes average Intelligence Estimate: Average Judgment: Poor Insight: None
[2018-11-19] MEDS: OLANZapine 10 MG TAB.RAPDIS PO SCH (21:23)
[2018-11-19] MEDS: Mirtazapine 15 MG TABLET PO SCH (21:23)
--- NOTE | 2018-11-20 08:16 | Psychiatry Progress Note ---
Date of Encounter: 11/20/18 Time of Encounter: 08:14 Subjective Interval history: Patient continues to be very disheveled. She has only showered once or twice while here and has not washed her hair at all. She is not caring for her activities of daily living and needs encouragement to eat. She has been eating a little bit since the IV and has not required an additional IV though her blood pressure is getting low again and pulse elevated so we may need to monitor for this. She denies auditory or visual hallucinations but continues to look around the room with darting eyes and appear to be responding to internal stimuli. She also appears paranoid and watchful. Review of Systems Psychiatric: Reports: anxiety ("I do not know"), abnormal sleep pattern, change in appetite (appetite is improving per nursing staff), auditory hallucinations, confusion. Denies: suicidal ideation, homicidal ideation, visual hallucinations Results - Vital Signs Vital Signs: Temp Pulse Resp BP Pulse Ox 97.6 F 89 16 101/70 97 11/19/18 19:54 11/19/18 19:54 11/19/18 19:54 11/19/18 19:54 11/19/18 19:54 Assessment and Plan (1) Schizophrenia Current visit: Yes Status: Chronic Plan: Continue hospitalization, Close observation, Suicide Precautions per unit protocol, Encourage participation in unit milieu, Group Therapy, Monitor sleep, Monitor appetite Additional Plan: Increase Zyprexa Zydis with an additional 5 mg in the morning. Continue Remeron and HSI this dose. Encourage group attendance. On Wednesday therapist to help her call her boyfriend and his mother regarding going there [facility] Risks, benefits, side effects, alternatives discussed w/pt: No (No changes made.) Patient agreeable to treatment: Yes (Court ordered medications are in place. Patient is agreeable.) Qualifiers: Schizophrenia type: other Qualified Code(s): F20.89 - Other schizophrenia; F20.8 - Other schizophrenia Consult Discharge Plan - Plan Referrals: NONE,PCP [Primary Care Provider] - Psychiatry Exam - Constitutional Vitals: Temp Pulse Resp BP Pulse Ox 97.6 F 89 16 101/70 97 11/19/18 19:54 11/19/18 19:54 11/19/18 19:54 11/19/18 19:54 11/19/18 19:54 General appearance: unkempt, disheveled, malodorous, thin - Musculoskeletal Gait: slow Station: stooped Strength & Tone: normal for patient - Psychiatric Patient Orientation: Yes Person, Yes Time, Yes Place Level of alertness: Alert Behavior: guarded, suspicious, distractible, withdrawn Psychomotor activity: Slowed Eye Contact: Fleeting Contact Mood Description: Other (flat) Patient description of mood: "Why do you ask?" Affect description: flat Speech Volume: Soft/Quiet Speech pattern: slowed Language & Vocabulary: limited Thought Process: Thought Blocking Thought Content: No Suicidal ideation, No Homicidal ideation, Yes Preoccupation, Yes Paranoid delusion Perceptual Disturbances: Yes Reacting to internal stimuli, Yes Auditory hallucinations Attention Span Ability: Unable to Focus, Unable to Sustain Attention Memory Description: Grossly Intact Patient Reliability: Questionable Historian Fund of knowledge: Yes average Intelligence Estimate: Average Judgment: Poor Insight: None
[2018-11-20] MEDS: OLANZapine 5 MG TAB.RAPDIS PO SCH (08:49)
[2018-11-20] MEDS: Mirtazapine 15 MG TABLET PO SCH (21:26)
[2018-11-20] MEDS: OLANZapine 10 MG TAB.RAPDIS PO SCH (21:26)
[2018-11-21] MEDS: OLANZapine 5 MG TAB.RAPDIS PO SCH (09:54)
--- NOTE | 2018-11-21 09:58 | Psychiatry Progress Note ---
Date of Encounter: 11/21/18 Time of Encounter: 09:00 Subjective Interval history: Mrs. Tran is a 33-year-old female who has been on the unit for 3 weeks. Patient appears to be improving slowly and is more conversational today than in the past. Her thoughts appeared to be more linear than previously. She states that her mood is "I do not know yet." She states she has been sleeping and eating, but nursing staff reports that she is not eating or drinking much. Her blood pressure has been low (96/66 this morning) and her pulse has been high (111 this morning). She does report feeling dizzy at times. Her Zyprexa Zydis was increased yesterday. Patient states she does not feel anxious or have suicidal or homicidal ideations. She does report experiencing homicidal ideations last week, but "I do not know who I wanted to harm." She states that these have since ceased. Prior to admission, she was living with her boyfriend and his mother for 2 years (except for a 3 month stay at a hotel by herself). She has not spoken to either of them since her admission. It seems that she wou ld be willing to sit down with the hospital social worker today to contact them. She states she would like to go back to living with them so that she can be around the baby. Review of Systems Cardiovascular: Reports: other (dizziness) Psychiatric: Reports: change in appetite (appetite is improving per nursing staff, but still not eating much), confusion. Denies: suicidal ideation, homicidal ideation, auditory hallucinations, visual hallucinations Results - Vital Signs Vital Signs: Temp Pulse Resp BP Pulse Ox 97.8 F 111 16 96/66 97 11/21/18 09:00 11/21/18 09:00 11/21/18 09:00 11/21/18 09:00 11/21/18 09:00 Assessment and Plan (1) Schizophrenia Current visit: Yes Status: Chronic Plan: Continue hospitalization, Close observation, Suicide Precautions per unit protocol, Encourage participation in unit milieu, Group Therapy, Monitor sleep, Monitor appetite Additional Plan: 1. Zyprexa Zydis was increased yesterday (5mg qAM and 20mg qHS). No changes necessary. 2. Continue Remeron 7.5mg. No changes necessary. 3. Encouraged patient to eat her meals and drink lots of fluids. 4. Encourage group attendance, but patient has not attended groups while here. 5. Encourage good hygiene. Patient has had minimal showers and has not washed her hair. 6. If patient is willing, will have hospital social worker attempt to contact Portillo Pérez (boyfriend) and Tarsha Pérez (boyfriend's mother) with whom she was living prior to admission. Would also like their insight on patient's baseline. [facility] is also an option. Risks, benefits, side effects, alternatives discussed w/pt: No (No changes made.) Patient agreeable to treatment: Yes (Court ordered medications are in place. Patient is agreeable.) Qualifiers: Schizophrenia type: other Qualified Code(s): F20.89 - Other schizophrenia; F20.8 - Other schizophrenia Consult Discharge Plan - Plan Referrals: NONE,PCP [Primary Care Provider] - - Attending Attestation I examined this patient and my medical decision-making was reviewed with the Resident Physician. I agree with the documented findings, disposition and treatment plan as described. Psychiatry Exam - Constitutional Vitals: Temp Pulse Resp BP Pulse Ox 97.8 F 111 16 96/66 97 11/21/18 09:00 11/21/18 09:00 11/21/18 09:00 11/21/18 09:00 11/21/18 09:00 General appearance: age & developmentally appropriate, unkempt, disheveled, average - Musculoskeletal Gait: slow (walks slowly with her arms at her side (minimal arm swing)) - Psychiatric Patient Orientation: Yes Person, Yes Time (does know date and day of the week), Yes Place, Yes Circumstance Level of alertness: Alert, Follows commands Behavior: calm, guarded Psychomotor activity: Normal Eye Contact: Maintains Eye Contact Mood Description: Euthymic/stable (mood and demeanor have not changed much) Patient description of mood: "I don't know yet" Affect description: blunted Speech Volume: Soft/Quiet Speech pattern: spontaneous, mumbled (occasionally) Language & Vocabulary: consistent with education Thought Process: Guy (though improving) Thought Content: No Suicidal ideation, No Homicidal ideation Perceptual Disturbances: Yes Reacting to internal stimuli (possibly, but improved from previous encounters), No Auditory hallucinations, No Visual hallucinations Attention Span Ability: Capable of Focused Attention Memory Description: Grossly Intact Patient Reliability: Questionable Historian Fund of knowledge: Yes average Intelligence Estimate: Average Judgment: Fair Insight: Partial
[2018-11-21] MEDS: OLANZapine 10 MG TAB.RAPDIS PO SCH (20:44)
[2018-11-21] MEDS: Mirtazapine 15 MG TABLET PO SCH (20:46)
[2018-11-22] MEDS: OLANZapine 5 MG TAB.RAPDIS PO SCH (08:15)
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
[2018-11-22] MEDS: Mirtazapine 15 MG TABLET PO SCH (20:55)
[2018-11-22] MEDS: OLANZapine 10 MG TAB.RAPDIS PO SCH (20:55)
[2018-11-23] MEDS: OLANZapine 5 MG TAB.RAPDIS PO SCH (08:29)
--- NOTE | 2018-11-23 10:04 | Psychiatry Progress Note ---
Date of Encounter: 11/23/18 Time of Encounter: 09:00 Subjective Interval history: Ms. Tran is on day 23 of her inpatient psychiatric hospitalization. Patient appears to be much improved today, engaging in conversation and asking this provider questions. The patient sat up in bed when this provider entered the room. She states that her mood is "confused." She says that she read something yesterday about "being free of humiliation" and that she has been thinking about a lot. She also states that she is "overwhelmed" because she "had a baby I have not really seen." Denies any problems with appetite and sleep. Denies any side effects from her medications. Denies suicidal and homicidal ideation. Denies auditory and visual hallucinations, but keeps looking at the door. However, she states that it is because she is looking towards the window on the door. Patient brought up the idea of humiliation several times during the interview. She seemed more willing to converse today, so this provider aske what she likes to do in her free time. She states that she used to like to watch TV in her free time, but watched too much TV. Her favorite show was "Believe It Or Not." Patient laughed when this provider did not know what the show was. She then asked what this provider likes to do for fun. Patient states that she has been thinking about her children, "not bad thoughts, just wanting to know where they are." She states that she doesn't like to talk about her children because she doesn't want them to be harmed. Review of Systems Musculoskeletal: Denies: myalgia Psychiatric: Reports: depression, change in appetite (appetite is improving per nursing staff, but still not eating much), confusion. Denies: suicidal ideation, homicidal ideation, auditory hallucinations, visual hallucinations Results - Vital Signs Vital Signs: Temp Pulse Resp BP Pulse Ox 98.6 F 107 20 108/76 97 11/22/18 20:32 11/22/18 20:32 11/22/18 20:32 11/22/18 20:32 11/22/18 20:32 Assessment and Plan (1) Schizophrenia Current visit: Yes Status: Chronic Additional Plan: 1. Continue Zyprexa Zydis and Remeron as prescribed. No changes necessary. 2. Patient has another hearing tomorrow, 11/24/2018 at 13:30. Patient was informed and appeared anxious about the situation. 3. Encourage group attendance, but patient has not attended groups while here. 4. Encourage good hygiene. 5. Social work has not been able to contact her family members. This provider's attending spoke with the patient today about possibly going to a jail at discharge if contact is not able to be made with the family. Risks, benefits, side effects, alternatives discussed w/pt: No (No changes made.) Patient agreeable to treatment: Yes (Court ordered medications are in place. Patient is agreeable.) Qualifiers: Schizophrenia type: other Qualified Code(s): F20.89 - Other schizophrenia; F20.8 - Other schizophrenia Consult Discharge Plan - Plan Referrals: NONE,PCP [Primary Care Provider] - - Attending Attestation I examined this patient and my medical decision-making was reviewed with the Resident Physician. I agree with the documented findings, disposition and treatment plan as described except to the extent set forth below. Client is starting to show some improvements. Still psychotic with active responding to internal stimuli. However, she is now managing her ADLs with some prompts and she is out of her room more walking about the unit. Has not attended any groups but psychosis would likely prevent her from really engaging in therapeutic group activities. Denies SI/HI. Also denies AH/VH but she is clearly responding at all times. No behavioral issues. Sleeping and eating decently well. Discussed residential placement if staff were unable to get a hold of any family members. Client became immediately nervous when this was brought up but did agree to talk to someone from the [facility] [place] [place] if they sent someone to assess her. Psychiatry Exam - Constitutional Vitals: Temp Pulse Resp BP Pulse Ox 98.6 F 107 20 108/76 97 11/22/18 20:32 11/22/18 20:32 11/22/18 20:32 11/22/18 20:32 11/22/18 20:32 General appearance: age & developmentally appropriate, average Additional observations: Patient's hair appears to be washed today. - Musculoskeletal Station: relaxed - Psychiatric Patient Orientation: Yes Person, Yes Time (able to state date ), Yes Place, Yes Circumstance Level of alertness: Alert, Follows commands Behavior: calm, cooperative, guarded (but less so than previously with this provider) Psychomotor activity: Normal Eye Contact: Minimal Contact (but improved) Mood Description: Euthymic/stable Patient description of mood: "confused" Affect description: congruent with mood, flat Speech Volume: Normal Speech pattern: normal rate, normal rhythm, normal tone Language & Vocabulary: consistent with education Thought Process: Linear (improving), [place] Thought Content: No Suicidal ideation, No Homicidal ideation, Yes Preoccupation (preoccupied with something she read about humiliation) Perceptual Disturbances: No Auditory hallucinations, No Visual hallucinations Attention Span Ability: Capable of Focused Attention Memory Description: Grossly Intact Patient Reliability: Questionable Historian Fund of knowledge: Yes average Intelligence Estimate: Average Judgment: Limited Insight: Partial
[2018-11-23] MEDS: Mirtazapine 15 MG TABLET PO SCH (20:47)
[2018-11-23] MEDS: OLANZapine 10 MG TAB.RAPDIS PO SCH (20:47)
[2018-11-24] MEDS: OLANZapine 5 MG TAB.RAPDIS PO SCH (08:58)
--- NOTE | 2018-11-24 09:54 | Psychiatry Progress Note ---
Date of Encounter: 11/24/18 Time of Encounter: 09:48 Subjective Interval history: Definitely looking better. Still very psychotic but visibly improved. She is now caring for her ADLs. Out of room more. Even attended a group yesterday which is the first one this admission. Continues to respond to internal stimuli and still very skiddish. Probate renewal hearing scheduled for today. Client not interested in attending and nervous talking about it. Still showing signs of paranoia but asking about baby today for the first time with this production underwriter. Wanting to know who has her baby and if he has been given a name. Staff have not had any luck getting a hold of family. Client did agree to sit down with staff to try and call them today. Staff report client approached the phone yesterday like she intended to use it but did not. Reports today she is still feeling "confused" but at least she is now able to say she feels confused as opposed to "I don't know." Was likely very ill for an extended period of time prior to admission and just needs a long recovery period. Review of Systems Constitutional: Denies: fever, chills, weakness, weight change Eyes: Denies: eye pain, vision change Ears, Nose, Throat: Denies: ear pain, throat pain, dental pain, hearing loss, congestion Cardiovascular: Denies: chest pain, palpitations, dyspnea on exertion Respiratory: Denies: cough, dyspnea, wheezes Gastrointestinal: Denies: abdominal pain, nausea, vomiting, diarrhea, constipation Musculoskeletal: Denies: joint swelling, joint pain Neurological: Denies: headache, weakness, numbness, memory loss Psychiatric: Reports: depression, change in appetite (appetite is improving per nursing staff, but still not eating much), confusion. Denies: suicidal ideation, homicidal ideation, auditory hallucinations, visual hallucinations Results - Vital Signs Vital Signs: Temp Pulse Resp BP Pulse Ox 98.9 F 87 18 103/72 97 11/24/18 08:51 11/24/18 08:51 11/24/18 08:51 11/24/18 08:51 11/24/18 08:51 Assessment and Plan (1) Schizophrenia Current visit: Yes Status: Chronic Plan: Continue hospitalization, Close observation, Suicide Precautions per unit protocol, Encourage participation in unit milieu, Group Therapy, Monitor sleep, Monitor appetite Risks, benefits, side effects, alternatives discussed w/pt: No (No changes made.) Patient agreeable to treatment: Yes (Court ordered medications are in place. Patient is agreeable.) Qualifiers: Schizophrenia type: other Qualified Code(s): F20.89 - Other schizophrenia; F20.8 - Other schizophrenia Consult Discharge Plan - Plan Referrals: NONE,PCP [Primary Care Provider] - Psychiatry Exam - Constitutional Vitals: Temp Pulse Resp BP Pulse Ox 98.9 F 87 18 103/72 97 11/24/18 08:51 11/24/18 08:51 11/24/18 08:51 11/24/18 08:51 11/24/18 08:51 General appearance: age & developmentally appropriate - Musculoskeletal Gait: normal Station: relaxed Strength & Tone: normal for patient - Psychiatric Patient Orientation: Yes Person, Yes Time, Yes Place Level of alertness: Alert Behavior: calm, cooperative Psychomotor activity: Normal Eye Contact: Minimal Contact Mood Description: Anxious Affect description: congruent with mood Speech Volume: Soft/Quiet Speech pattern: normal rate, normal rhythm, normal tone, fluent, spontaneous Language & Vocabulary: consistent with education Thought Process: Linear Thought Content: No Suicidal ideation, No Homicidal ideation, No Overt delusions Perceptual Disturbances: Yes Reacting to internal stimuli Attention Span Ability: Unable to Sustain Attention Memory Description: Immediate Intact, Recent Impaired, Remote Intact Patient Reliability: Questionable Historian Fund of knowledge: Yes abstraction ability Intelligence Estimate: Average Judgment: Limited Insight: Minimal
[2018-11-24] MEDS: Mirtazapine 15 MG TABLET PO SCH (20:29)
[2018-11-24] MEDS: OLANZapine 10 MG TAB.RAPDIS PO SCH (20:30)
[2018-11-25] MEDS: OLANZapine 5 MG TAB.RAPDIS PO SCH (08:40)
--- NOTE | 2018-11-25 10:18 | Psychiatry Progress Note ---
Date of Encounter: 11/25/18 Time of Encounter: 09:30 Subjective Interval history: Ms. Tran is a 33 year old female who was admitted to the inpatient psychiatric almost a month ago. Her hearing was yesterday and patient was given another 30 day probate. She did not attend the hearing. Patient continues to improve this week. She states she did not sleep well last night. She states that her mood is "I do not know." She says that her appetite has increased since starting the medication, but still admits to being dizzy. This provider encouraged her to drink water. She admits to sadness secondary to anticipating what is going to happen. She does not know if she is experiencing anxiety. Denies suicidal ideation, homicidal ideation, auditory and visual hallucinations. Per nursing staff, patient was more interactive yesterday and out of her room. She also tried to watch TV yesterday for the first time. Review of Systems Psychiatric: Reports: depression, change in appetite (Increasing), confusion. Denies: suicidal ideation, homicidal ideation, auditory hallucinations, visual hallucinations Results - Vital Signs Vital Signs: Temp Pulse Resp BP Pulse Ox 98.5 F 123 18 104/73 94 11/25/18 09:00 11/25/18 09:00 11/25/18 09:00 11/25/18 09:00 11/25/18 09:00 Assessment and Plan (1) Schizophrenia Current visit: Yes Status: Chronic Additional Plan: 1. Continue Zyprexa Zydis and Remeron as prescribed. No changes necessary. 2. Encourage group attendance, but patient has not attended groups while here. 3. Encourage good hygiene. Patient did ask to shower yesterday. 4. Will continue to work with social work to hopefully contact patient's family. [facility] Symantel is also a potential discharge option. Risks, benefits, side effects, alternatives discussed w/pt: No (No changes made.) Patient agreeable to treatment: Yes (Court ordered medications are in place. Patient is agreeable.) Qualifiers: Schizophrenia type: other Qualified Code(s): F20.89 - Other schizophrenia; F20.8 - Other schizophrenia Consult Discharge Plan - Plan Referrals: NONE,PCP [Primary Care Provider] - - Attending Attestation I examined this patient and my medical decision-making was reviewed with the Resident Physician. I agree with the documented findings, disposition and treatment plan as described. Psychiatry Exam - Constitutional Vitals: Temp Pulse Resp BP Pulse Ox 98.5 F 123 18 104/73 94 11/25/18 09:00 11/25/18 09:00 11/25/18 09:00 11/25/18 09:00 11/25/18 09:00 General appearance: age & developmentally appropriate, average Additional observations: Patient asked nursing staff yesterday she did shower. She still has poor hygiene, but it is continuing to improve. - Musculoskeletal Station: relaxed Strength & Tone: normal for patient - Psychiatric Patient Orientation: Yes Person, Yes Time (Knows the day of the week and the date), Yes Place, Yes Circumstance Level of alertness: Alert Behavior: calm, cooperative, guarded (Not as guarded as previously and is actively engaging in conversation with this provider) Psychomotor activity: Normal Eye Contact: Minimal Contact (Poor eye contact but improving) Mood Description: Euthymic/stable Patient description of mood: "I don't know" Affect description: flat (Affect continues to improve, with patient smiling and laughing at times) Speech Volume: Normal Speech pattern: normal rate, normal rhythm, normal tone, other (Patient's words trail off less frequently than previously) Language & Vocabulary: consistent with education Thought Process: Linear (Improving), [place] Thought Content: No Suicidal ideation, No Homicidal ideation Perceptual Disturbances: No Reacting to internal stimuli, No Auditory hallu cinations, No Visual hallucinations Attention Span Ability: Capable of Sustained Attention Memory Description: Grossly Intact Patient Reliability: Questionable Historian Fund of knowledge: Yes average Intelligence Estimate: Average Judgment: Fair Insight: Minimal
[2018-11-25] MEDS: Mirtazapine 15 MG TABLET PO SCH (20:50)
[2018-11-25] MEDS: OLANZapine 10 MG TAB.RAPDIS PO SCH (20:50)
[2018-11-26] MEDS: OLANZapine 5 MG TAB.RAPDIS PO SCH (08:42)
--- NOTE | 2018-11-26 09:01 | Psychiatry Progress Note ---
Date of Encounter: 11/26/18 Time of Encounter: 08:58 Subjective Interval history: Still psychotic but clearly improved. Managed to sit in the day room for a long while yesterday watching TV. Attended a group. Did not really engage but answered direct questions asked of her. Came up on her own for night meds for the first time yesterday evening. Still needs prompts to care for her hygiene but will shower when asked. Eating and sleeping well. Staff were able to get a hold of her boyfriend's mother last night. It sounds like the baby is now with them and that there is some kind of protection order in place preventing Earline from being around the baby. For this reason Earline cannot return to live with them. Staff are still attempting to contact her aunt. Agustín Hollins will evaluate client next week but Earline is unlikely to do as well in this type of setting. Would prefer to use this placement as a last resort. Review of Systems Constitutional: Denies: fever, chills, weakness, weight change Eyes: Denies: eye pain, vision change Ears, Nose, Throat: Denies: ear pain, throat pain, dental pain, hearing loss, congestion Cardiovascular: Denies: chest pain, palpitations, dyspnea on exertion Respiratory: Denies: cough, dyspnea, wheezes Gastrointestinal: Denies: abdominal pain, nausea, vomiting, diarrhea, constipation Musculoskeletal: Denies: joint swelling, joint pain Neurological: Denies: headache, weakness, numbness, memory loss Psychiatric: Reports: depression, change in appetite (Increasing), confusion. Denies: suicidal ideation, homicidal ideation, auditory hallucinations, visual hallucinations Results - Vital Signs Vital Signs: Temp Pulse Resp BP Pulse Ox 98.1 F 96 17 120/81 98 11/25/18 20:54 11/25/18 20:54 11/25/18 20:54 11/25/18 20:54 11/25/18 20:54 Assessment and Plan (1) Schizophrenia Current visit: Yes Status: Chronic Plan: Continue hospitalization, Close observation, Suicide Precautions per unit protocol, Encourage participation in unit milieu, Group Therapy, Monitor sleep, Monitor appetite Risks, benefits, side effects, alternatives discussed w/pt: Yes (No changes made.) Patient agreeable to treatment: Yes (Court ordered medications are in place. Patient is agreeable.) Qualifiers: Schizophrenia type: other Qualified Code(s): F20.89 - Other schizophrenia; F20.8 - Other schizophrenia Consult Discharge Plan - Plan Referrals: NONE,PCP [Primary Care Provider] - Psychiatry Exam - Constitutional Vitals: Temp Pulse Resp BP Pulse Ox 98.1 F 96 17 120/81 98 11/25/18 20:54 11/25/18 20:54 11/25/18 20:54 11/25/18 20:54 11/25/18 20:54 General appearance: disheveled - Musculoskeletal Gait: normal Station: relaxed Strength & Tone: normal for patient - Psychiatric Patient Orientation: Yes Person, Yes Time, Yes Place Level of alertness: Alert Behavior: calm, cooperative Psychomotor activity: Normal Eye Contact: Minimal Contact Mood Description: Anxious Affect description: congruent with mood Speech Volume: Normal Speech pattern: normal rate, normal rhythm, normal tone, fluent, spontaneous Language & Vocabulary: consistent with education Thought Process: Linear Thought Content: No Suicidal ideation, No Homicidal ideation, No Overt delusions Perceptual Disturbances: Yes Reacting to internal stimuli Attention Span Ability: Capable of Focused Attention Memory Description: Immediate Intact, Recent Impaired, Remote Intact Patient Reliability: Questionable Historian Fund of knowledge: Yes abstraction ability Intelligence Estimate: Average Judgment: Fair Insight: Minimal
[2018-11-26] MEDS: Mirtazapine 15 MG TABLET PO SCH (20:51)
[2018-11-26] MEDS: OLANZapine 10 MG TAB.RAPDIS PO SCH (20:51)
[2018-11-27] MEDS: OLANZapine 5 MG TAB.RAPDIS PO SCH (08:50)
--- NOTE | 2018-11-27 09:06 | Psychiatry Progress Note ---
Date of Encounter: 11/27/18 Time of Encounter: 09:02 Subjective Interval history: Continues to look better. Still answers "I don't know" to a lot of questions but far more able to communicate than in the past. Asking intelligent questions. Asked this remote mortgage underwriter about Power of Shaper [employer] today. Able to process information now. Still has some paranoia and eye darting but spending more and more time out of her room. Watched TV in the day room for a long while yesterday. Eating and sleeping well. Blood pressure has been stable and client denies further dizziness. Unable to return to live with boyfriend and his mother. Staff are now trying to get a hold of her aunt. If this does not work out [facility] has agreed to assess her this week. Review of Systems Constitutional: Denies: fever, chills, weakness, weight change Eyes: Denies: eye pain, vision change Ears, Nose, Throat: Denies: ear pain, throat pain, dental pain, hearing loss, congestion Cardiovascular: Denies: chest pain, palpitations, dyspnea on exertion Respiratory: Denies: cough, dyspnea, wheezes Gastrointestinal: Denies: abdominal pain, nausea, vomiting, diarrhea, constipation Musculoskeletal: Denies: joint swelling, joint pain Neurological: Denies: headache, weakness, numbness, memory loss Psychiatric: Reports: depression, change in appetite (Increasing), confusion. Denies: suicidal ideation, homicidal ideation, auditory hallucinations, visual hallucinations Results - Vital Signs Vital Signs: Temp Pulse Resp BP Pulse Ox 98.1 F 100 16 111/78 97 11/26/18 20:21 11/26/18 20:21 11/26/18 20:21 11/26/18 20:21 11/26/18 20:21 Assessment and Plan (1) Schizophrenia Current visit: Yes Status: Chronic Plan: Continue hospitalization, Close observation, Suicide Precautions per unit protocol, Encourage participation in unit milieu, Group Therapy, Monitor sleep, Monitor appetite Risks, benefits, side effects, alternatives discussed w/pt: Yes (No changes made.) Patient agreeable to treatment: Yes (Court ordered medications are in place. Patient is agreeable.) Qualifiers: Schizophrenia type: other Qualified Code(s): F20.89 - Other schizophrenia; F20.8 - Other schizophrenia Consult Discharge Plan - Plan Referrals: NONE,PCP [Primary Care Provider] - Psychiatry Exam - Constitutional Vitals: Temp Pulse Resp BP Pulse Ox 98.1 F 100 16 111/78 97 11/26/18 20:21 11/26/18 20:21 11/26/18 20:21 11/26/18 20:21 11/26/18 20:21 General appearance: disheveled - Musculoskeletal Gait: normal Station: relaxed Strength & Tone: normal for patient - Psychiatric Patient Orientation: Yes Person, Yes Time, Yes Place Level of alertness: Alert Behavior: calm, cooperative Psychomotor activity: Normal Eye Contact: Maintains Eye Contact Mood Description: Anxious Affect description: congruent with mood Speech Volume: Soft/Quiet Speech pattern: normal rate, normal rhythm, normal tone, fluent, spontaneous Language & Vocabulary: consistent with education Thought Process: Linear Thought Content: No Suicidal ideation, No Homicidal ideation, No Overt delusions Perceptual Disturbances: Yes Reacting to internal stimuli Attention Span Ability: Capable of Focused Attention Memory Description: Immediate Intact, Recent Impaired, Remote Intact Patient Reliability: Questionable Historian Fund of knowledge: Yes abstraction ability Intelligence Estimate: Average Judgment: Fair Insight: Minimal
[2018-11-27] MEDS: Mirtazapine 15 MG TABLET PO SCH (20:53)
[2018-11-27] MEDS: OLANZapine 10 MG TAB.RAPDIS PO SCH (20:54)
[2018-11-28] MEDS: OLANZapine 5 MG TAB.RAPDIS PO SCH (08:37)
--- NOTE | 2018-11-28 11:44 | Psychiatry Progress Note ---
Date of Encounter: 11/28/18 Time of Encounter: 09:45 Subjective Interval history: Ms. Tran is a 33-year-old female who is very familiar to this provider. Patient was sitting in her bed doing a word search book when this provider entered, which is quite an improvement. Patient continues to improve daily in regards to her conversing and leaving her room. Patient states her mood is "flighty." She denies any problems with sleep and appetite. Patient does report left shoulder pain. Denies suicidal ideation, homicidal ideation, auditory and visual hallucinations. She states that she is depressed because of "anticipation." She does not know where she is going to go when she is dischar ged and asked this provider about [facility] Sym[facility]. She is also concerned because she has a bag at [place] and [facility] hom[facility] has her two older children's social security cards and certificates in it. She states "I do not know if they would do anything" but she is very concerned about them having access to that information. Patient again stated that it was "unbelievable" that she got because she "said yes in my sleep." States that the baby is Portillo's because that is the last person that she was with; denies that they were trying to get . This provider told the patient that her baby is with Portillo and Tarsha. Patient seemed to be okay with that and asked if they had named the baby. Review of Systems Musculoskeletal: Reports: joint pain (left shoulder pain) Psychiatric: Reports: depression (due to "anticipation"), confusion (improving). Denies: suicidal ideation, homicidal ideation, auditory hallucinations, visual hallucinations Results - Vital Signs Vital Signs: Temp Pulse Resp BP Pulse Ox 98.6 F 87 16 102/66 97 11/28/18 09:00 11/28/18 09:00 11/28/18 09:00 11/28/18 09:00 11/28/18 09:00 Assessment and Plan (1) Schizophrenia Current visit: Yes Status: Chronic Additional Plan: 1. Continue Zyprexa Zydis and Remeron as prescribed. No changes necessary. 2. Encourage group attendance. Patient was seen doing a word search this morning. Encouraged patient to continue to exercise her brain in ways like this. 3. Encourage good hygiene. Hygiene has been improving. 4. Will continue to work with social work to hopefully contact patient's family. [facility] Taylorantel is also a potential discharge option. Patient was given the number to her her aunt Kyara. Stated that she might try to contact her au nt today. Also states that it would be "too much" to ask to stay with Kyara, but also never really thought about asking her. Risks, benefits, side effects, alternatives discussed w/pt: Yes (No changes made.) Patient agreeable to treatment: Yes (Court ordered medications are in place. Patient is agreeable.) Qualifiers: Schizophrenia type: other Qualified Code(s): F20.89 - Other schizophrenia; F20.8 - Other schizophrenia Consult Discharge Plan - Plan Referrals: NONE,PCP [Primary Care Provider] - - Attending Attestation I examined this patient and my medical decision-making was reviewed with the Resident Physician. I agree with the documented findings, disposition and treatment plan as described except to the extent set forth below. Psychiatry Exam - Constitutional Vitals: Temp Pulse Resp BP Pulse Ox 98.6 F 87 16 102/66 97 11/28/18 09:00 11/28/18 09:00 11/28/18 09:00 11/28/18 09:00 11/28/18 09:00 General appearance: age & developmentally appropriate, average Additional observations: Patient has been showering more often. Hygiene has drastically improved over the past week. - Musculoskeletal Station: relaxed Strength & Tone: normal for patient - Psychiatric Patient Orientation: Yes Person, Yes Time, Yes Place, Yes Circumstance Level of alertness: Alert Behavior: calm, guarded (though much improved), withdrawn (mostly stays in her room) Psychomotor activity: Normal Eye Contact: Maintains Eye Contact Mood Description: Euthymic/stable Patient description of mood: "flighty" Affect description: flat Speech Volume: Normal, Soft/Quiet (at times) Speech pattern: normal rate, normal rhythm, normal tone, rambling (at times about certain topics; today rambling about the bag that she had at [place] and ) Language & Vocabulary: consistent with education Thought Process: Linear (improving), Disorganized (somewhat, though improved), [place] Thought Content: No Suicidal ideation, No Homicidal ideation Perceptual Disturbances: No Reacting to internal stimuli (did not appear to be reacting in today's interview), No Auditory hallucinations, No Visual hallucinations Attention Span Ability: Capable of Focused Attention, Capable of Sustained Att ention Memory Description: Grossly Intact Patient Reliability: Questionable Historian Fund of knowledge: Yes average Intelligence Estimate: Average Judgment: Limited Insight: Minimal
[2018-11-28] MEDS: Mirtazapine 15 MG TABLET PO SCH (21:17)
[2018-11-28] MEDS: OLANZapine 10 MG TAB.RAPDIS PO SCH (21:17)
[2018-11-29] MEDS: OLANZapine 5 MG TAB.RAPDIS PO SCH (09:01)
--- NOTE | 2018-11-29 10:17 | Psychiatry Progress Note ---
Date of Encounter: 11/29/18 Time of Encounter: 09:45 Subjective Interval history: Ms. Tran is a 33 year old female who has been on the unit for almost a month now for psychosis. Patient continues to improve daily. This provider saw the patient sitting in the day room for breakfast and later doing word search puzzles. This is a big improvement because patient had previously been retreating to her room all day. Patient states that her mood is "I do not know" and reports no problems with sleep or appetite. She reports having anxiety over the anticipation of her discharge plan. Agustín Shah is coming today to evaluate the patient for possible placement. Patient denies suicidal ideation, homicidal ideation, auditory and visual hallucinations. Patient does report having shakiness in her hands, arms, and feet after taking her night medications. She reports that this only lasts for 15 minutes and is not painful. Review of Systems Psychiatric: Reports: anxiety. Denies: suicidal ideation, homicidal ideation, auditory hallucinations, visual hallucinations Results - Vital Signs Vital Signs: Temp Pulse Resp BP Pulse Ox 98.2 F 98 16 109/75 94 11/29/18 09:00 11/29/18 09:00 11/29/18 09:00 11/29/18 09:00 11/29/18 09:00 Assessment and Plan (1) Schizophrenia Current visit: Yes Status: Chronic Plan: Continue hospitalization, Close observation, Suicide Precautions per unit protocol, Encourage participation in unit milieu, Group Therapy, Monitor sleep, Monitor appetite Additional Plan: 1. Continue Zyprexa Zydis and Remeron as prescribed. No changes necessary. Patient is reporting shakiness in her hands for 15 minutes after receiving medications. Will continue to monitor, but this does not appear to be a concern. 2. Encourage group attendance. Patient was seen hanging out in the dayroom this morning. This is a big improvement. 3. Encourage good hygiene. Hygiene has been improving. 4. Agustín Shah is coming to evaluate the patient today for placement. Risks, benefits, side effects, alternatives discussed w/pt: Yes (No changes made.) Patient agreeable to treatment: Yes (Court ordered medications are in place. Patient is agreeable.) Qualifiers: Schizophrenia type: other Qualified Code(s): F20.89 - Other schizophrenia; F20.8 - Other schizophrenia Consult Discharge Plan - Plan Referrals: NONE,PCP [Primary Care Provider] - - Attending Attestation I examined this patient and my medical decision-making was reviewed with the Resident Physician. I agree with the documented findings, disposition and treatment plan as described except to the extent set forth below. Psychiatry Exam - Constitutional Vitals: Temp Pulse Resp BP Pulse Ox 98.2 F 98 16 109/75 94 11/29/18 09:00 11/29/18 09:00 11/29/18 09:00 11/29/18 09:00 11/29/18 09:00 General appearance: age & developmentally appropriate, average Additional observations: Patient was sitting in the dayroom doing a word search book. - Musculoskeletal Gait: normal Station: relaxed Strength & Tone: normal for patient - Psychiatric Patient Orientation: Yes Person, Yes Time, Yes Place, Yes Circumstance Level of alertness: Alert Behavior: calm, cooperative Psychomotor activity: Normal Eye Contact: Maintains Eye Contact Mood Description: Euthymic/stable, Anxious Patient description of mood: "I don't know" Affect description: flat, anxious Speech Volume: Normal Speech pattern: normal rate Language & Vocabulary: consistent with education Thought Process: Linear (improving), [place] Thought Content: Yes Intact, No Suicidal ideation, No Homicidal ideation Perceptual Disturbances: No Reacting to internal stimuli (no longer appears to be reacting to internal stimuli), No Auditory hallucinations, No Visual hallucinations Attention Span Ability: Capable of Focused Attention, Capable of Sustained Attention (doing word search puzzles) Memory Description: Grossly Intact Patient Reliability: Questionable Historian Fund of knowledge: Yes average Intelligence Estimate: Average Judgment: Limited Insight: Minimal
[2018-11-29] MEDS: Mirtazapine 15 MG TABLET PO SCH (21:04)
[2018-11-29] MEDS: OLANZapine 10 MG TAB.RAPDIS PO SCH (21:05)
--- NOTE | 2018-11-30 08:15 | Discharge Summary ---
Date of Encounter: 11/30/18 Time of Encounter: 08:10 Diagnosis - Discharge Diagnosis (1) Schizophrenia Status: Chronic Qualifiers: Schizophrenia type: other Qualified Code(s): F20.89 - Other schizophrenia; F20.8 - Other schizophrenia Medications - Discharge Medications Prescriptions: RX: Mirtazapine [Remeron] 7.5 mg PO HS #30 tablet RX: OLANZapine [Zyprexa Zydis] 20 mg PO HS #30 tab.rapdis RX: OLANZapine [Zyprexa Zydis] 5 mg PO QAM #30 tab.rapdis RX: Mirtazapine [Remeron] 7.5 mg PO HS #30 tablet 11/30/18 [Rx] RX: OLANZapine [Zyprexa Zydis] 5 mg PO QAM #30 tab.rapdis 11/30/18 [Rx] RX: OLANZapine [Zyprexa Zydis] 20 mg PO HS #30 tab.rapdis 11/30/18 [Rx] Allergy/AdvReac Type Severity Reaction Status Date / Time Cyclobenzaprine AdvReac Anaphylaxis Verified 10/31/18 20:16 [From Flexeril] Results Procedures and tests throughout hospitalization: Short CBC 11/14/18 Range/Units 14:21 WBC 6.7 (4.3-11.1) K/mcL Hgb 13.2 (11.5-15.4) g/dL Hct 42.3 (35.3-44.9) % Plt Count 246 (140-400) K/mcL Neutrophils # 3.6 (1.6-8.9) K/mcL BMP 11/16/18 12:38 Sodium 143 Potassium 3.9 Chloride 109 H Carbon Dioxide 25 BUN 14 Creatinine 0.76 Glucose 84 Calcium 8.9 Liver Function 11/16/18 Range/Units 12:38 Total Bilirubin 0.5 (0.3-1.0) mg/dL AST 11 L (13-39) Units/L ALT 6 L (7-52) Units/L Alkaline Phosphatase 87 (34-104) Units/L Albumin 3.8 (3.5-5.7) g/dL Provider Date of admission: 10/31/18 19:37 Primary care physician: PCP NONE Consults: 11/04/18 08:59 Consult to DIRECTOR OF OPERATIONS FOR THERAPY [CONS] Routine Consulting Provider: CIVIL ENGINEER'S AIDE Bobbi Reason for Consult: Pt had a recent delivery, and is with severe psychosis and unable to care for self. Time Notified: 09:00 Call Completed: Yes 11/15/18 07:10 Consult to Hospitalist [CONS] Routine Consulting Provider: Hospitalist Geo Reason for Consult: patient with post- psychosis has not been eating or drinking other than ice chips. SHe is becoming very dehydrated with elevated pulse and low BP. She is on antipsychotics which present more of a risk of severe side effects such as NMS with dehydration. Please eval need for medical admission for stabalization of hydration status/IV fluids. Call Completed: No 11/15/18 15:36 Consult to Nutrition [CONS] Routine Comment: Consulting Provider: NUTRITION Reason for Dietary Consult: PO Supplementation Discharging clinician: Brianna Salazar Psychiatry Exam - Constitutional Vitals: Temp Pulse Resp BP Pulse Ox 98 F 89 16 113/79 97 11/29/18 20:45 11/29/18 20:45 11/29/18 20:45 11/29/18 20:45 11/29/18 20:45 General appearance: age & developmentally appropriate, average Additional observations: Patient was seen eating breakfast in the day room today. This continues to be an improvement from previous days. - Musculoskeletal Gait: normal Station: relaxed Strength & Tone: normal for patient - Psychiatric Patient Orientation: Yes Person, Yes Time, Yes Place, Yes Circumstance Level of alertness: Alert, Follows commands Behavior: calm, cooperative Psychomotor activity: Normal Eye Contact: Maintains Eye Contact Mood Description: Euthymic/stable Patient description of mood: "Nervous" Affect description: congruent with mood, flat (Though improved), anxious Speech pattern: normal rate, normal rhythm, normal tone, coherent Language & Vocabulary: consistent with education Thought Process: [place] Thought Content: No Suicidal ideation, No Homicidal ideation Perceptual Disturbances: No Reacting to internal stimuli (No longer appears to be reacting to internal stimuli), No Auditory hallucinations, No Visual hallucinations Attention Span Ability: Capable of Focused Attention, Capable of Sustained Attention Memory Description: Grossly Intact Patient Reliability: Questionable Historian (However, patient continues to add more history today) Fund of knowledge: Yes average Intelligence Estimate: Average Judgment: Fair Insight: Partial Hospital Course Hospital course: Ms. Tran is a 33 year old female who was admitted on 11/01/18, three days after the of her baby at home. On admission, patient did not speak much and answered almost every question with "I don't know." She was very guarded and suspicious. She was obviously reacting to internal stimuli at the time. Patient had poor hygiene. Court ordered medications were obtained and patient was placed on Zyprexa Zydis and Remeron. After this, her condition improved. Patient started to improve on roughly the third week of her stay in her interactions, hygiene, and appetite improved. She started to eat more and, over the last several days, has been hanging out in the dayroom instead of her room. She has denied suicidal ideation throughout her stay. She did admit homicidal ideation one day during her stay, but this has since resolved. Denying auditory and visual hallucinations. She is experiencing a little shakiness in her arms from her medications at night. She reports feeling anxious today due to moving to [facility]. Also admits that she "felt sad" last night. Appetite has improved. Reaction with others has improved, as patient has been spending more time in the dayroom has been more talkative during her daily visits with psychiatrist. Liver, patient never did attend groups while on the unit, though she was given the option every day. During her one-month stay, CIVIL ENGINEER'S AIDE was consulted due to lack of hygiene. Medicine was consulted on 11/15/2018 due to patient not eating and having increased pulse and low blood pressure. IV fluids were given. Prior to admission, patient was living with her boyfriend (Portillo) and his mother (Tarsha). However, staff had a very difficult time getting ahold of them during her stay. Tarsha was finally reached on 11/25/18 and said that Magdalene is not welcome back at their home. They have custody of the and there is a protection order in place against Magdalene. Staff also tried to contact patient's biological mother, but did not hear back. Her aunt, Kyara, tried to contact the patient during her stay, but the patient would not speak to her. Patient was educated of her diagnosis and the risks, benefits, and side effects of this treatment and alternative treatment options and was monitored for responsiveness and side effects. Mood, anxiety, sleep, appetite, and interest improved, as did future orientation. Thinking cleared, psychosis improved, and mood stabilized. Patient was able to attend both individual and group therapy sessions as well as meeting with the psychiatrist daily and urged to discuss any medication or treatment issues or other concerns. The patient was educated primarily by verbal means about their diagnosis and manifestations in their life. Potential risks, benefits, and side effects were discussed with the patient at length. The patient was given the opportunity to ask questions and was noted to participate in the treatment in the planning process (patient was much more involved in her treatment toward the end of her stay). The patient felt ready and eager to be discharged from the inpatient psychiatric unit to continue on with treatment at [facility]. The patient agreed that is they were safe for this disposition. At the time of discharge the patient adamantly denied any concerns for lethality including suicidal or homicidal though ts/ideations/plans and was future oriented toward ongoing mental health care and medical follow-up. - Time Spent with Patient Total time spent providing and/or coordinating discharge services: Specific discharge activities: Interval history reviewed. Available labs reviewed. Psychotherapy provided. Patient had an opportunity to ask questions and address concerns. Patient was in agreement with the treatment plan. The risks, benefits, and side effects of medications were discussed with the patient, including alternatives and treatment. The patient was educated on the abstaining from any alcohol or illicit substances, following up with all scheduled appointments, and taking all medications as prescribed. The patient is being discharged to [facility]. Assessment and Plan - Patient/Caregiver Discharge Instructions Activity: resume usual activities as tolerated Diet: regular diet Additional Instructions: Continue current medications. Follow up with outpatient mental health. Encourage continued therapy in a group or individual setting, which will be provided at [facility]. The patient was discharged to [facility]. - Follow up Plan Follow up with: [facility] [Outside] (You will be going to mental health respite at [facility] on discharge from the hospital. While there, you will be seen daily by the clinic counselors and case loader operator, both individually and in group. [facility] staff will conduct an initial intake psychosocial/diagnostic assessment with you to discuss current symptoms, stressors, and goals. Together with the counselor you will develop an Individualized Service Plan (ISP) and determine the best course of treatment for you. Before leaving the [facility] you will be set up with a counselor at one of the [facility] locations to follow-up on an outpatient basis.) Functional capacity at discharge: independent ambulation Overall status at discharge: Stable Disposition: Transfer Other Quality - Multiple Antipsychotics Patient discharged on 2 or more antipsychotic medications: No - Attending Attestation I examined this patient and my medical decision-making was reviewed with the Resident Physician. I agree with the documented findings, disposition and treatment plan as described except to the extent set forth below. I examined this patient and my medical decision-making was reviewed with the Resident Physician. I agree with the documented findings, disposition and treatment plan as described except to the extent set forth below. Procedures - Procedures Procedures: Medication Management, Crisis Stabilization, Supportive Therapy, Group Therapy, Psychoeducational Therapy Other Procedures: IV fluids were given to the patient on 11/15/2018.
[2018-11-30 09:02] VITALS: BP 119/83
[2018-11-30] MEDS: OLANZapine 5 MG TAB.RAPDIS PO SCH (09:02)
== END 2018-11-30 13:25 | disposition other institution (70) | DRG 776 ==
LOC: 1ANU 19:37 → SUATTDRO 19:37
PROVIDERS: ADMIT Psychiatry & Neurology Psychiatry; ATTEND Psychiatry & Neurology Psychiatry